=== PATIENT | female | born 1950 | race Caucasian/White ===

== ENCOUNTER 2019-10-16 14:20 | Outpatient (CLI) | payer MEDICARE, SELFPAY ==
[2019-10-16 15:20] LABS: HCT 40.4 % (36.0-46.0); HGB 13.3 g/dL (12.0-15.5); Mean Corp. HGB Concentration 32.9 g/dL (32.0-36.0); Mean Corpuscular Hemoglobin 30.6 pg (27.0-33.0); Mean Corpuscular Volume 92.9 fL (80-95); Mean Platelet Volume 10.5 fL (8.0-11.0); Platelet Count 278 x1000/uL (130-400); RBC 4.35 m/cumm (4.00-5.20); RBC Distribution Width 12.5 % (11.7-14.6); White Blood Cell Count 5.48 k/cumm (4.4-10.8)
[2019-10-16 16:05] LABS: ALT 29 U/L (14-59); AST 25 U/L (15-37); Alkaline Phosphatase 75 U/L (46-116); Anion Gap 7.9 mmol/L (3-11); BUN 14 mg/dL (7-18); Bilirubin, Total 0.5 mg/dL (0.2-1.0); CO2 31.1 mmol/L (21.0-32.0); CREATININE 0.69 mg/dL (0.55-1.02); Calcium 8.8 mg/dL (8.5-10.1); Chloride 105 mmol/L (98-107); Glucose 97 mg/dL (74-106); Potassium 4.6 mmol/L (3.5-5.1); Sodium 144 mmol/L (136-145); TSH 1.71 uIU/mL (0.36-3.74); Total Protein 6.7 g/dL (6.4-8.2)
== END 2019-10-16 14:40 ==
PROVIDERS: PCP Family Medicine; Visit Provider Family Medicine
DX: R00.2 Palpitations (principal)
CPT/HCPCS: 36415; 80053; 85027; 84443

== ENCOUNTER 2019-10-18 03:55 | Outpatient (CLI) | payer MEDICARE, SELFPAY ==
--- NOTE | 2019-11-05 14:55 | W.ZIOMONITOR ---
Date of service: 11/05/19 Time of Service: 14:55 ZIO Patch Application Infrastructure Engineer Note: This is a 14-day ZIO patch ordered for the indication of palpitations. ?Patient was in normal sinus rhythm for the majority of the recording. ?There were 3 episodes of supraventricular tachycardia with the longest lasting 8 seconds. The heart rate ranged from 102 to 222 bpm during these episodes. ?There were no episodes of ventricular tachycardia and rare (less than 1%) ventricular ectopic beats. ?There were no pauses greater than 3 seconds, no episodes of atrial fibrillation and no evidence of high degree heart block. ?Patient triggered events were associated with sinus rhythm and sinus tachycardia (but not SVT).
== END 2019-10-18 04:15 ==
PROVIDERS: PCP Family Medicine; Visit Provider Family Medicine
DX: R00.2 Palpitations (principal); I47.1 Supraventricular tachycardia
CPT/HCPCS: 0296T

== ENCOUNTER 2019-11-05 14:55 | Outpatient (CLI) | payer MEDICARE, SELFPAY | END 2019-11-05 15:15 | PROVIDERS: PCP Family Medicine; Referring Provider Family Medicine; Visit Provider Internal Medicine Cardiovascular Disease | DX: R00.2 Palpitations (principal); I47.1 Supraventricular tachycardia | CPT/HCPCS: 0298T ==

== ENCOUNTER 2020-10-15 12:44 | Outpatient (CLI) | payer MEDICARE, SELFPAY ==
--- NOTE | 2020-10-15 12:45 | RT.EKG_ITS ---
APPROVED REPORT Exam: Resting ECG Patient Location: O HR:80 bpm ECG Measurements Heart Rate 80 AXIS [place] 137 P 78 QRSd 107 QRS 93 QT 373 T 56 QTc 431 Conclusion Sinus rhythm...normal P axis, V-rate 50- 99 Probable left atrial enlargement...P >50mS, <-0.10mV V1 Right axis deviation...QRS axis ( 91,269) RSR' in V1 or V2, probably normal variant...small R' only Consider left ventricular hypertrophy...(S V1/V2+R V5/V6) >3.25mV
== END 2020-10-15 12:45 | disposition home or self-care (01) ==
LOC: DI.CARD 12:59
PROVIDERS: PCP Family Medicine; Referring Provider Family Medicine; Visit Provider Internal Medicine Cardiovascular Disease
DX: R00.2 Palpitations (principal)
CPT/HCPCS: 93010

== ENCOUNTER → 2020-10-15 12:44 | Outpatient (BNVA) | payer MEDICARE, SELFPAY | PROVIDERS: PCP Family Medicine; Referring Provider Family Medicine; Visit Provider Internal Medicine Cardiovascular Disease | DX: R00.2 Palpitations (principal) | CPT/HCPCS: 99204 ==

== ENCOUNTER 2020-10-28 01:05 | Outpatient (CLI) | payer MEDICARE, SELFPAY ==
--- NOTE | 2020-10-28 07:45 | DI.MAMMO_ITS ---
EXAM: MG MAMMO SCREENING CLINICAL HISTORY: screening,z12.39. TECHNIQUE: Bilateral full field digital CC and MLO mammographic images were obtained with 3D tomosyn thesis and utilizing computer aided detection (CAD). COMPARISON: Prior outside mammograms dating back to 2011, the most recent being June 2019. FINDINGS: There are numerous benign-appearing tiny microcalcifications in both breasts again noted. There are no new malignant-appearing microcalcification groups. No new obvious spiculated masses. There is no significant architectural distortion nor skin thicken ing-retraction. IMPRESSION: Benign findings. No radiographic evidence of malignancy. BI-RADS Category 1 - Negative Breast Density - Category B - Scattered areas of fibroglandular density Breast density Category C or D implies that the patient has dense breast tissue. Dense breast tissue can make it harder to find cancer on a mammogram. Dense breast tissue is also associated with an incr eased risk of breast cancer. This information about the result of the mammogram report was provided to the patient to raise their awareness. Use this report when you speak with the patient about their risks for breast cancer, which includes their family history. At that time, you may recommend additional screening tests (Ultrasoun d or MRI) as these tests may add significant information. A negative radiographic report should not delay biopsy if a dominant or clinically suspicious mass is present. Up to ten percent of cancers are not identified on mammography. A negative report may reinforce clinical impression. Adenosis and dense breasts may obscure an underlying neoplasm. False positive reports average 6 to 10%. Patient will receive a letter notifying them of these results.
== END 2020-10-28 01:25 ==
PROVIDERS: PCP Family Medicine; Visit Provider Family Medicine
DX: Z12.31 Encounter for screening mammogram for malignant neoplasm of breast (principal)
CPT/HCPCS: 77063; 77067

== ENCOUNTER → 2021-11-26 01:28 | Outpatient (CLI) | payer MEDICARE, SELFPAY ==
--- NOTE | 2021-11-26 07:30 | DI.US_ITS ---
APPROVED REPORT EXAM: Comprehensive 2D, Doppler, and color-flow Echocardiogram Patient Location: Out-Patient Field Party Manager: Faby Batista RDCS (AE) Indications: Palpitations, Rt Ventricular dysplasia Conclusion Normal left ventricular wall thickness and chamber size. Estimated ejection fraction is 55%. Wall m otion is normal Normal right ventricular size and systolic function Both atria are normal in size Trileaflet aortic valve without stenosis or regurgitation Mild mitral annular calcification. Mild mitral regurgitation Normal tricuspid valve with trace regurgitation. Estimated right ventricular systolic pressure is 30 mmHg Wall motion Left Ventricle The left ventricle is normal size. The left ventricular systolic function is normal. The left ventric ular ejection fraction is within the normal range. There is normal left ventricular wall thickness. T here is normal LV segmental wall motion. There is no ventricular septal defect visualized. LVEF is 56 %. Right Ventricle The right ventricle is normal size. The right ventricular systolic function is normal. The RVSP is 30 .5 mmHg. Atria The left atrium size is normal. The right atrium size is normal. The interatrial septum is intact wit h no evidence for an atrial septal defect. Aortic Valve The aortic valve is normal in structure. Aortic valve is trileaflet. There is no aortic valvular sten osis. No aortic regurgitation is present. Mitral Valve Mild mitral annular calcification. No evidence of mitral valve stenosis. Mild mitral regurgitation. Tricuspid Valve The tricuspid valve is normal in structure. There is no tricuspid valve stenosis. Trace tricuspid reg urgitation. Pulmonic Valve The pulmonary valve is normal in structure. There is no pulmonic valvular stenosis. There is no pulmo jatin valvular regurgitation. Great Vessels The aortic root is normal in size. Ascending aorta is not well visualized. Aortic arch is normal in c aliber. IVC is normal in size and collapses >50% with inspiration. Pericardium There is no pericardial effusion. 2D Dimensions IVSD d PLAX 0.85 cm F: 0.6-1.0 LV Vol A2C d MOD 101.5 mL LVPW d PLAX 0.86 cm F: 0.6 - 1.0 LV Vol A4C d MOD 103.0 mL LVID d PLAX 4.85 cm F: 3.8 - 5.2 LA vol/ BSA A2C s A-L 22.6 mL/m2 LVDs 3.40 cm F: 2.2 - 3.5 LA vol/ BSA A4C s A-L 26.0 mL/m2 Ao Root d 3.03 cm F: 2.7 - 3.3 LA Vol/ BSA Biplane s A-L 24.8 mL/m2 RA Area A4C 13.37 cm2 LA Area A4C s MOD 20.47 cm2 RA Vol/ BSA A4C s A-L 14.8 mL/m2 LA Area A2C s MOD 19.54 cm2 LV EF Teichholz 55.5 % LV EF A4C MOD 55.9 % LVEF (Barajas's) 56.10 % F: 54 - 74 LV EF A2C MOD 56.2 % LV Volume 72.01 mL F: 46 - 106 LV EF Biplane MOD 56.1 % LV Volume Index 41.86 mL/m2 F: 29 - 61 SV 57.25 mL LV Vol Biplane MOD 102.0 mL SV Index 23.54 mL/m2 FS 28.90 % M-Mode TAPSE 2.50 cm (M/F) >1.7 LV Diastology MV E' medial 0.142 (>0.07 m/s) E/A Ratio 1.6 LV E/e MED 6.60 (<14) MV E Vmax 0.94 (0.4-1.3 m/s) MV E' lateral 0.139 (>0.1 m/s) MV A Vmax 0.60 (0.4-1.3 m/s) LV E/e LAT 6.75 (<14) MV E/A Ratio 1.56 MV E/E' medial 6.62 MV E/E' lateral 6.77 Aortic Valve LVOT Area 3.65 cm2 MEGAN 2.73 cm2 LVOT Vmax 1.25 m/s AoV Area Vmax 2.73 cm2 LVOT Mean Gerry. 0.78 m/s AoV Area/ BSA (Vmax) 1.12 cm2/m2 LVOT Peak Grad 6.3 mmHg MEGAN Mean Gerry. 1.21 cm2 LVOT Mean Grad 3.0 mmHg LVOT VTI 0.288 m LVOT Diam s 2.15 cm AoV Vmax 1.67 m/s Velocity Ratio 0.74 AoV Mean Gerry. 1.21 m/s AoV Peak Grad 11.2 mmHg LVOT SV 104.85 mL AoV Mean Grad 6.5 mmHg AoV VTI 0.349 m AoV Area VTI 3.00 cm2 AoV Area/ BSA (VTI) 1.23 cm/m2 Mitral Valve MV DT 180 (160-240 msec) MV PHT 52 msec MV Area PHT 4.22 cm2 Pulmonary Valve PV Vmax 0.95 (0.5-1.5 m/s) RVOT Peak Gr. 2.92 mmHg PV Peak Grad 3.6 mmHg RVOT Mean Gr. 1.45 mmHg PV Mean Grad 2.2 mmHg RVOT VTI 0.190 m PV VTI 0.222 m RVOT Vmax 0.85 m/s Tricuspid Valve TR Peak Grad 27.5 mmHg TR Vmax 2.62 m/s RA Pressure 3.00 mmHg RVSP (TR) 30.5 mmHg
== END ==
PROVIDERS: Visit Provider Internal Medicine Cardiovascular Disease
DX: Q24.9 Congenital malformation of heart, unspecified (principal); R00.2 Palpitations
CPT/HCPCS: 93306

== ENCOUNTER → 2021-11-30 09:41 | Outpatient (BNVA) | payer MEDICARE, SELFPAY | PROVIDERS: Visit Provider Internal Medicine Cardiovascular Disease | DX: Q24.9 Congenital malformation of heart, unspecified (principal) | CPT/HCPCS: 99213 ==

== ENCOUNTER → 2021-12-30 19:40 | Outpatient (CLI) | payer MEDICARE, SELFPAY ==
--- NOTE | 2021-12-30 20:00 | DI.RAD_ITS ---
Exam(s) XR FOOT RT COMPLETE EXAM: XR FOOT RT COMPLETE CLINICAL HISTORY: right foot pain. TECHNIQUE: 2D digital imaging was performed. Three views. COMPARISON: No exams were available for comparison FINDINGS: BONES: No acute fracture is present. No bony destructive lesion is seen. Small heel spurs. Mild deg enerative changes tarsal metatarsal joints and 1st MTP joint. Mild hallux valgus. JOINTS: No dislocation present. SOFT TISSUE: Normal. IMPRESSION: Degenerative changes and small heel spurs. No acute abnormality DATA REPOSITORY: RADIATION DOSE DELIVERED:
--- NOTE | 2021-12-30 20:34 | DI.VRAD_ITS ---
PROCEDURE INFORMATION: Exam: XR Right Foot Exam date and time: 12/30/2021 7:56 PM Age: 71 years old Clinical indication: Injury or trauma; Fall; Sprain or strain; Foot; Right TECHNIQUE: Imaging protocol: XR Right foot. Views: 3 or more views. COMPARISON: No relevant prior studies available. FINDINGS: Bones/joints: No suspicious osseous lytic or blastic lesion. No acute fracture or dislocation. There is mild hallux valgus deformity with mild degenerative changes of the 1st MTP joint. Small plantar spur with mild posterior calcaneal enthesopathy. Soft tissues: There is soft tissue bunion formation. IMPRESSION: No acute fracture or dislocation. Dictated and Authenticated by: Missael Montez MD. Ordering:ARLENE Delarosa MD
== END ==
PROVIDERS: Visit Provider Physician Assistant Medical
DX: M79.671 Pain in right foot (principal); M77.31 Calcaneal spur, right foot; M19.071 Primary osteoarthritis, right ankle and foot; M20.11 Hallux valgus (acquired), right foot
CPT/HCPCS: 73630

== ENCOUNTER → 2022-01-28 00:03 | Outpatient (CLI) | payer MEDICARE, SELFPAY ==
--- NOTE | 2022-01-28 06:45 | DI.MAMMO_ITS ---
Exam(s) MAMMO SCREENING EXAM: MAMMO SCREENING CLINICAL HISTORY: screening, Z12.39 TECHNIQUE: Mammograms were interpreted according to the usual protocol including computer analysis w BCKSTGR CAD system, tomosynthesis and C-view imaging. COMPARISON: 2012 through 2020 FINDINGS: The breasts are composed of scattered fibroglandular densities, Breast Density category B. No suspicious masses or suspicious microcalcifications are seen. No skin thickening or abnormal axillary lymph nodes are seen. There has been no significant change from prior exams. IMPRESSION: BI-RADS Category 1, Negative mammogram Yearly screening mammography is recommended. Breast Density - Category B, scattered fibroglandular densities. A negative radiographic report should not delay biopsy if a dominant or clinically suspicious mass is present. Up to ten percent of cancers are not identified on mammography. A negative report may reinforce clinical impression. Adenosis and dense breasts may obscure an underlying neoplasm. False positive reports average 6 to 10%. Patient will receive a letter notifying them of these results.
== END ==
DX: Z12.31 Encounter for screening mammogram for malignant neoplasm of breast (principal)
CPT/HCPCS: 77063; 77067

== ENCOUNTER 2022-02-09 03:55 | Outpatient (CLI) | payer MEDICARE, SELFPAY ==
[2022-02-09 08:02] LABS: ALT 25 U/L (14-59); AST 26 U/L (15-37); Albumin 3.6 g/dL (3.4-5.0); Alkaline Phosphatase 83 U/L (46-116); Anion Gap 9.3 mmol/L (3-11); BUN 21 mg/dL (7-18); Bilirubin, Total 0.5 mg/dL (0.2-1.0); CO2 26.7 mmol/L (21.0-32.0); CREATININE 0.8 mg/dL (0.55-1.02); Calcium 8.3 mg/dL (8.5-10.1); Calculated LDL 123 mg/dL (<100); Chloride 107 mmol/L (98-107); Cholesterol 212 mg/dL (<200); Glucose 88 mg/dL (74-106); HDL Cholesterol 82 mg/dL (40-60); Potassium 4.1 mmol/L (3.5-5.1); Sodium 143 mmol/L (136-145); Total Protein 6.9 g/dL (6.4-8.2); Triglyceride 38 mg/dL (<150)
== END 2022-02-09 03:56 | disposition home or self-care (01) ==
LOC: LBO 03:55
DX: E78.5 Hyperlipidemia, unspecified (principal)
CPT/HCPCS: 36415; 80053; 80061

== ENCOUNTER 2023-03-27 02:46 | Outpatient (CLI) | payer MEDICARE, SELFPAY ==
--- NOTE | 2023-03-27 06:45 | DI.MAMMO_ITS ---
Exam(s) MAMMO SCREENING EXAM: MAMMO SCREENING CLINICAL HISTORY: screening,z12.39 TECHNIQUE: Bilateral full field digital CC and MLO mammographic images were obtained with 3D tomosyn thesis and utilizing computer aided detection (CAD). COMPARISON: Available for comparison. FINDINGS: Masses/Architectural Distortion: None seen. Microcalcifications: No suspicious pleomorphic-type are seen. Skin Thickening/Nipple Retraction: None. IMPRESSION: 1. No significant interval change with no specific features of malignancy noted. 2. Unless there is more urgent need, screening mammography is recommended, as per [employer] guidelines. BI-RADS Category 1 - Negative Breast Density - Category B - Scattered areas of fibroglandular density Breast density category C or D implies that the patient has dense breast tissue. Dense breast tissue is very common and is not abnormal but dense breast tissue can make it harder to find cancer on a ma mmogram. Also, dense breast tissue may increase their breast cancer risk. This information about the result of the mammogram report was provided to the patient to raise their awareness. Use this report when you speak with the patient about their risks for breast cancer, which includes their family hist ory. At that time, you may recommend for more screening tests (Ultrasound or MRI) as they might be us eful based on their risk. A negative radiographic report should not delay biopsy if a dominant or clinically suspicious mass is present. Up to ten percent of cancers are not identified on mammography. A negative report may reinforce clinical impression. Adenosis and dense breasts may obscure an underlying neoplasm. False positive reports average 6 to 10%. Patient will receive a letter notifying them of these results.
== END 2023-03-27 03:06 ==
LOC: DI 02:46
PROVIDERS: PCP Nurse Practitioner Adult Health; Visit Provider Nurse Practitioner Adult Health
DX: Z12.31 Encounter for screening mammogram for malignant neoplasm of breast (principal)
CPT/HCPCS: 77063; 77067

== ENCOUNTER 2023-04-27 16:39 | Outpatient (REF) | payer MEDICARE, SELFPAY ==
--- NOTE | 2023-04-27 16:30 | SKI_PTH ---
PATIENT: Lindy Armando LOC: [facility]#:[id number] AGE/SX: 72/F ROOM: RE04/27/[address]: Isaura Cunningham : 1950 BED: DIS: 04/27/2023 SPEC #: [id number] RECD: 04/28/23 12:54 STATUS: ALVARO REQ #: [id number] SADAF: 04/27/23 16:[address]: Isaura Cunningham DEPT: Surgical Specimen RECD BY: Leny Ruiz ENTERED: 04/28/23 12:55 SP TYPE: EMRE AMBRIZ DR: Flower Alarcon APRN Tissues: 1 - SKIN BIOPSY(SHAVE/PUNCH) Procedures: SKIN LEVEL 4 Comments: [id number]
== END 2023-04-27 16:40 | disposition home or self-care (01) ==
LOC: LBN 16:39
PROVIDERS: PCP Nurse Practitioner Adult Health; Visit Provider Physician Assistant Medical
DX: L82.0 Inflamed seborrheic keratosis (principal); N64.89 Other specified disorders of breast
CPT/HCPCS: 88305

== ENCOUNTER → 2023-12-28 01:26 | Outpatient (CLI) | payer MEDICARE, SELFPAY ==
--- NOTE | 2023-12-28 07:00 | DI.DEXA_ITS ---
Exam(s) XR DEXA BONE DENSITY W/WO ANT EXAM: XR DEXA BONE DENSITY W/WO ANT CLINICAL HISTORY: h/o osteopenia, f/u osteopenia, screening for osteoporosis in post TECHNIQUE: COMPARISON: No exams were available for comparison FINDINGS: Lateral Spine Image: Unremarkable. No compression deformities identified. Left hip: Total T-Score: -2.1 Total Z-Score: -0.6 T- and Z-scores: Findings are consistent with osteopenia. Lumbar Spine: Total T-Score: -2.4 Total Z-Score: 0.2 T- and Z-scores: Findings are consistent with osteopenia. There is osteoporosis seen in the L1 and L 4 vertebral bodies with T-scores of -2.6 -2.9, respectively. IMPRESSION: Osteoporosis seen in L1 and L4.
== END ==
PROVIDERS: PCP Family Medicine; Visit Provider Family Medicine
DX: Z13.820 Encounter for screening for osteoporosis (principal); Z78.0 Asymptomatic menopausal state; M81.8 Other osteoporosis without current pathological fracture
CPT/HCPCS: 77080

== ENCOUNTER 2024-01-19 14:31 | Outpatient (REF) | payer MEDICARE, SELFPAY ==
--- NOTE | 2024-01-19 13:13 | SKI_PTH ---
PATIENT: Lindy Armando LOC: [facility] U#:[id number] AGE/SX: 73/F ROOM: RE01/19/[address]: Gabi Burrell : 1950 BED: DIS: 01/19/2024 SPEC #: [id number] RECD: 01/22/24 12:43 STATUS: ALVARO REJuan Luis #: [id number] SADAF: 01/19/24 13:[address]: Gabi uBrrell DEPT: Surgical Specimen RECD BY: Leny Ruiz Tissues: 1 - SKIN BIOPSY(SHAVE/PUNCH) Procedures: SKIN LEVEL 4 Comments: [id number]
== END 2024-01-19 14:32 | disposition home or self-care (01) ==
LOC: LBN 14:31
PROVIDERS: PCP Family Medicine; Visit Provider Family Medicine
DX: L98.9 Disorder of the skin and subcutaneous tissue, unspecified (principal); L21.9 Seborrheic dermatitis, unspecified
CPT/HCPCS: 88305

== ENCOUNTER → 2024-02-08 02:22 | Outpatient (CLI) | payer MEDICARE, SELFPAY ==
--- NOTE | 2024-02-08 08:43 | DI.RAD_ITS ---
Exam(s) XR FOOT LT COMPLETE EXAM: XR FOOT LT COMPLETE CLINICAL HISTORY: assess for foreign body, lt foot, S90.852A superficial foreign body. TECHNIQUE: 2D digital imaging was performed. COMPARISON: CR,XR XR FOOT RT COMPLETE from 12/30/2021 FINDINGS: 3 views No evidence of fracture or diastasis of the Lisfranc joint. Moderate degenerative changes at the gre at toe metatarsophalangeal joint noted. There is mild soft tissue swelling adjacent to the head of t he 5th metatarsal. No soft tissue calcification or radiopaque foreign body seen at this level. Fift h metatarsal head appears unremarkable. No evidence of erosions nor osteomyelitis. IMPRESSION: No fractures. No radiopaque foreign bodies evident. No evidence of osteomyelitis. DATA REPOSITORY: RADIATION DOSE DELIVERED:
== END ==
PROVIDERS: PCP Family Medicine; Visit Provider Nurse Practitioner Family
DX: S90.852A Superficial foreign body, left foot, initial encounter (principal); X58.XXXA Exposure to other specified factors, initial encounter
CPT/HCPCS: 73630

== ENCOUNTER → 2024-02-26 13:40 | Outpatient (BNVA) | payer MEDICARE, SELFPAY | PROVIDERS: PCP Family Medicine; Referring Provider Family Medicine; Visit Provider Podiatrist | DX: M79.672 Pain in left foot (principal); W26.8XXA Contact with other sharp object(s), not elsewhere classified, initial encounter; Y93.01 Activity, walking, marching and hiking | CPT/HCPCS: 11042; 99213 ==

== ENCOUNTER 2024-04-16 02:44 | Outpatient (CLI) | payer MEDICARE, SELFPAY ==
--- OUTSIDE RECORDS SUMMARY | 2024-04-16 02:47 | XMS_ITS | Encounter Summary ---
Author Organization [facility] [place] [address] Care Team Providers Care Facilities Custodian Name Role Phone Anna Segura MD Primary Care Provider [phone] Reason for Visit * Reason Comments Skin Check Encounter Details Date Type Department Care Team (Late st Contact Info) Description 01/24/2014 4:15 PM EDT Office Visit Dermatology at [address] [phone] Helio Gerardo MD [address] [facility] [place] [address] Seborrheic keratosis (Primary Dx); Nevus Social History Tobacco Use Types Packs/Day Years Used Date Smoking Tobacco: Never Sex and Gender Information Value Date Recorded Sex Assigned at Not on file Gender Identity Not on file Sexual Orientation Not on file documented as of this encounter Progress Notes * Helio Gerardo MD - 01/24/2014 4:41 PM EDT Problem: Repeat skin checkup. Lindy follows up, referred back by Shobha Nicole, who recently saw her and was concerned about a mid central thoracic back atypically pigmented lesion. It is just adjacent to where she has a patch of hyperpigmentation consistent with notalgia paresthetica. Physical examination reveals a pleasant 63-year-old woman who has a light buchanan, waxy, stuck-on appearing seborrheic keratosis of the mid central back with darker macules of hyperpigmentation, brown to black, within it. It appears to be benign seborrheic keratosis. Just to the right laterally and adjacent to this is her hyperpigmented patch of notalgia paresthetica. Otherwise, careful examination of the head and the neck, the chest, the back, hands, arms, forearms, thighs, and calves is benign. Patient continues to have a 1.5 mm blue nevus on the scapha of her right ear. The hyperpigmented area on her right mid back, consistent with notalgia paresthetica, is 4 cm in diameter. Assessment and Plan: 1. Benign skin examination. a. Patient reassured about benign skin examination. b. No treatment necessary. c. Reassured about benign seborrheic keratosis. Return to clinic p.r.n. COPY: Sirena Viramontes M.D. documented in this encounter Plan of Treatment Upcoming Encounters Date Type Department Care Team (Late st Contact Info) Description 02/10/2026 3:15 PM EDT Office Visit Dermatology at [address] [phone] Helio Gerardo MD [address] [facility] [place] [address] documented as of this encounter Visit Diagnoses Diagnosis Seborrheic keratosis- Primary Other seborrheic keratosis Nevus Benign neoplasm of skin, site unspecified documented in this encounter Care Teams Facilities Custodian Relationship Specialty Start Date End Date Anna Segura MD [address] [place] [address] PCP - General 07/27/10 09/03/15 documented as of this encounter
--- OUTSIDE RECORDS SUMMARY | 2024-04-16 02:47 | XMS_ITS | Encounter Summary ---
Author Organization [facility] Address [address] [place] [address] Care Team Providers Care Precision Thread Grinder Operator Name Role Phone Unavailable Primary Care Provider Unavailabl e Encounter Details Date Type Department Care Team (Late st Contact Info) Description 10/21/[address] [facility] ([facility] [address] [place], [place] [address] Raquel Nicole ARNP [address] [place] [id number] Social History Tobacco Use Types Packs/Day Years Used Date Smoking Tobacco: Never Assessed Sex and Gender Information Value Date Recorded Sex Assigned at Not on file Gender Identity Not on file Sexual Orientation Not on file documented as of this encounter Plan of Treatment Not on file documented as of this encounter Procedures Procedure Name Priority Date/Time Associated Diagnosis Comments CYTOPATHOLOGY Routine 10/21/2009 0:00 EST documented in this encounter Results * CYTOPATHOLOGY (10/21/2009 0:00 EST) Pathology Report: CYTOPATHOLOGY REPORT ? Reports generated via electronic interface contain original data; ? however they are lacking the format of the original report. ? Caution should be taken when reading/interpreti ng unformatted reports. ? Name: ? DULCE ARMANDO ? Accession #: ? [id number] ? : ? 1950 (Age: 59) ??F ?Collect Date: ? 10/21/2009 ? Location: ? [facility] ? Receive Date: ? 10/23/2009 ? Provider: ?RAQUEL RHODES ? Copy to: ? Specimen/Source: ?Pap Test, Cervix/Endocervix, ThinPrep Imaging System ? with manual evaluation ? Last Menstrual Period: ? Other: ? Additional clinical information: '94 Atypia. Atrophic Changes. ? SPECIMEN ADEQUACY ? Unsatisfactory for Evaluation, ? - insufficient numbers of squamous epithelial cells (less than 10% of expected ?? cellularity) ? GENERAL CATEGORIZATION ? Specimen processed and examined, but unsatisfactory for evaluation of ? epithelial abnormality. ? Recommend repeat Pap test or further follow up, as clinically indicated. ? Document reviewed and electronically signed by: ? Roberta Eligio, CT(ASCP) ? Report Date: ??10/27/2009 13:36 ? End of Report ? JESSICA GUERRERO 10/21/2009 10/23/2009 Raquel RHODES PATHOLOGY ORDERABL ES [facility] [address] [place] [address] documented in this encounter Visit Diagnoses Not on filedocumented in this encounter
--- OUTSIDE RECORDS SUMMARY | 2024-04-16 02:47 | XMS_ITS | Encounter Summary ---
Author Organization [facility] Address [facility] [place] [address] Care Team Providers Care Commercial Real Estate Assistant Name Role Phone Tyesha Schneider MD Primary Care Provider [phone] Reason for Visit * Reason Comments Skin Check * Consultation (Urgent) - Closed Specialty Diagnoses / Procedures Referred By Jamil tillman Referred To Contact Dermatology Diagnoses Disorder of the skin and subcutaneous tissue, unspecified SKIN lesion on nose since spring has grown and is conerning Procedures she will be leaving the state in 3 weeks and should be seen prior as she will be away for a length of time Kunal Hunt R, VEGETABLE LOADER MACHINE OPERATOR [address] [place] [address] [facility] Dermatology [address] [place] [address] Referral ID Status Reason Start Date Expiration Date V isits Requested Visits Authorized [id number] Closed Consult, Test & [facility] PCP Updated and/or Approved 03/25/2021 03/25/2022 6 6 Encounter Details Date Type Department Care Team (Late st Contact Info) Description 04/05/2021 9:45 AM EDT Office Visit Dermatology at [facility] [address] [place] [address] Luke Figueroa MD [facility] [address] [place] [address] Actinic keratoses; Seborrheic keratosis; History of basal cell carcinoma; Avelar angioma Social History Tobacco Use Types Packs/Day Years Used Date Smoking Tobacco: Never Smokeless Tobacco: Never Sex and Gender Information Value Date Recorded Sex Assigned at Not on file Gender Identity Not on file Sexual Orientation Not on file documented as of this encounter Patient Instructions * Patient Instructions* Ozzy Irvin LPN - 04/05/2021 9:45 AM EDT Actinic Keratoses You have been diagnosed today with Actinic Keratosis (AK). These dry, scaly patches are considered the earliest stage in the development of skin cancer. In rare cases, an AK can progress to skin cancer. Because of this risk, AKs are usually treated. You were treated today with Liquid Nitrogen. This is the most common treatment for AKs. Liquid nitrogen is extremely cold, and freezes the surface of the skin, causing the lesion to flake off. Treatment with liquid nitrogen can be uncomfortable, but discomfort should subside after a couple of hours. The area treated will look red and irritated, and it may blister up or turn dark, then fall off. This is normal! You do not need any special treatment for the area, but you may find cold compresses and/or a lightapplication of Vaseline soothing. For best results, do not rub or pick at the healing lesion. Expected healing time is 3-4 weeks. Please contact the Dermatology clinic if the lesion has not fully resolved after 6 weeks. documented in this encounter Progress Notes * Luke Figueroa MD - 04/05/2021 9:45 AM EDT Images from the original note were not included. DEPARTMENT OF DERMATOLOGY Medical Dermatology Clinic Provider: Luke Figueroa MD Patient's preferred name ePrla Preferred contact method for results []myDH []Letter [x]Phone: Cell Detailed phone message OK? Yes Are there any other people with whom we may discuss your care? Kuldip, daughter Danuta PAST MEDICAL HISTORY If no, type N. If yes, type date, location, treatment Melanoma N Dysplastic nevi N SCC N BCC 07/02/2019: Left nasal tip, superficial and nodular BCC, s/p ED&C AKs N Other relevant past medical history (i.e. eczema, psoriasis, birthmarks, immunosuppression) N FAMILY HISTORY If yes, details Melanoma N NMSC Father Other relevant family history N SOCIAL HISTORY Occupation: Retired Other: History of Present Illness: Lindy Armando is a 70 y.o. year old. Patient returns to clinic todayfor evaluation of FSE with the following concerns: - Spot on the nos,e present since the spring, it is scaly at times. Not symptomatic. - She has many moles and requests a full skin check today. Medications: Reviewed in eD-H Allergies: Reviewed in eD-H Skin Examination: Full skin examination: Patient asked to undress to their comfort level. Verbalized that the provider's preference is that patient removal all clothing and that the provider will not examine areas patient elects to keep covered. Examination of the scalp, hair, head, face, ears, neck, chest, axillae,abdomen, back, buttocks, and upper and lower extremities. Genitalia was not examined. Assessment/Plan: #. Actinic Keratosis - 0.2-0.3cm scaly irregular pink papule on the left nasal sidewall - Discussed the natural history and etiology of actinic keratoses including the premalignant potential of these lesions. -Discussed treatment options. Procedure Note: Procedure: Destruction of lesion(s) with cryotherapy. Number: 1 Location: as above Discussed procedure and expectations including risks (including risk of hypopigmentation) and benefits. Verbal consent obtained. Frozen with LN2, 15-30 second thaw time, TWICE. There were no complications; the patient tolerated the procedure well. Post-procedure expectations and wound care were reviewed. #. History of BCC - Atrophic papule on the left tip of the nose - s/p ED&C with Dr. Gerardo - NER, will continue to monitor the area. #. Seborrheic Keratoses - Scattered yellow to buchanan stuck on papules 3-6 mm in size on the chest, back, arms, and legs -benign nature of lesions discussed -patient reassured. #. 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 Nevi - scattered brown macules on the back, chest, and face w/o concerning findings on dermoscopy -pt reassured -advised the pt to monitor nevi monthly and if they are growing, changing color, or new lesions appear pt should call back to be seen before their next FBSE Other items to document in the assessment/plan if relevant ??? Sun protection discussed (protective clothing and SPF30+ broad-spectrum sunscreen) Prior ED&C site: RTC: 1 year for FSE []Note routed to front office secretary [x]Recall has been placed in scheduling system []Appointment scheduled at checkout Scribe attestation: Ozzy Irvin LPN has performed the documentation for this encounter in the presence of and acting as a scribe for Luke Figueroa MD I performed the above scribed service and agree with the accuracy of the documentation in this encounter. Reviewed and signed by: Luke Figueroa MD Dermatology [facility] documented in this encounter Plan of Treatment Upcoming Encounters Date Type Department Care Team (Late st Contact Info) Description 02/10/2026 3:15 PM EDT Office Visit Dermatology at [facility] [address] [place] [phone] Helio Gerardo MD [address] [facility], [facility] [place] [address] documented as of this encounter Visit Diagnoses Diagnosis Actinic keratoses Actinic keratosis Seborrheic keratosis Other seborrheic keratosis History of basal cell carcinoma Personal history of other malignant neoplasm of skin Avelar angioma Nevus, non-neoplastic documented in this encounter Care Teams Commercial Real Estate Assistant Relationship Specialty Start Date End Date Tyesha Schneider MD [address] [place] [address] PCP - General Family Medicine 07/02/19 documented as of this encounter
--- OUTSIDE RECORDS SUMMARY | 2024-04-16 02:47 | XMS_ITS | Encounter Summary ---
Author Organization [facility] Address [facility] [place] [address] Care Team Providers Care Wire Stretcher Name Role Phone Tyesha Schneider MD Primary Care Provider Reason for Visit * Reason Comments Skin Check Encounter Details Date Type Department Care Team (Late st Contact Info) Description 09/19/2022 8:00 AM EST Office Visit Dermatology at [address] [phone] Helio Gerardo MD [address] [place] [address], [facility] [place] [address] Seborrheic keratosis; History of basal cell carcinoma; Avelar angioma Social History Tobacco Use Types Packs/Day Years Used Date Smoking Tobacco: Never Smokeless Tobacco: Never Sex and Gender Information Value Date Recorded Sex Assigned at Not on file Gender Identity Not on file Sexual Orientation Not on file documented as of this encounter Progress Notes * Helio Gerardo MD - 09/19/2022 8:00 AM EST Problem: 1. Repeat skin checkup 2. 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 Since I last saw her she was seen at [facility] in April 2021 for benign skin examination. She had a number of bad sunburns in the past and enjoys the [id number] bicycling in the summer and skiing/winter sports in the winter. Physical examination reveals a pleasant 72-year-old woman who has a benign examination of the head and the neck the chest the back the hands arms forearms thighs and calves. There is no evidence of any cutaneous malignancies. She has a number of seborrheic keratoses on her back. She has a number ofcherry red hemangiomas on the torso. Fortunately there is no evidence of any recurrent BCC on the left nasal tip. Assessment plan: Benign skin examination 1. Patient reassured about her benign skin examination 2. Recommend I continue to see her on a roughly every 2-year basis. 3. Continue sun avoidance precautions History of BCCA left nasal tip 1. No evidence of recurrence. CC: Marcia Schneider MD documented in this encounter Plan of Treatment Upcoming Encounters Date Type Department Care Team (Late st Contact Info) Description 02/10/2026 3:15 PM EDT Office Visit Dermatology at [place] [address] [place] [address] Helio Gerardo MD [address] [facility], [address] [place] [address] documented as of this encounter Visit Diagnoses Diagnosis Seborrheic keratosis Other seborrheic keratosis History of basal cell carcinoma Personal history of other malignant neoplasm of skin Avelar angioma Nevus, non-neoplastic documented in this encounter Care Teams Wire Stretcher Relationship Specialty Start Date End Date Tyesha Schneider MD [address] [place] [address] [address] [facility] [address] [place] [address] PCP - General Family Medicine 07/02/19 documented as of this encounter
--- OUTSIDE RECORDS SUMMARY | 2024-04-16 02:47 | XMS_ITS | Encounter Summary ---
Author Organization [facility] [place] [address] Care Team Providers Care Mail Rider Name Role Phone Tyesha Schneider MD Primary Care Provider [phone] Encounter Details Date Type Department Care Team (Latest Contact Info) Description 02/16/2023 Travel Social History Tobacco Use Types Packs/Day Years Used Date Smoking Tobacco: Never Smokeless Tobacco: Never Sex and Gender Information Value Date Recorded Sex Assigned at Not on file Gender Identity Not on file Sexual Orientation Not on file documented as of this encounter Plan of Treatment Upcoming Encounters Date Type Department Care Team (Late st Contact Info) Description 02/10/2026 3:15 PM EDT Office Visit Dermatology at [address] [phone] Helio Gerardo MD [address] [facility], [place] [address] documented as of this encounter Visit Diagnoses Not on filedocumented in this encounter Care Teams Mail Rider Relationship Specialty Start Date End Date Tyesha Schneider MD [address] [place] [address] PCP - General Family Medicine 07/02/19 documented as of this encounter
--- OUTSIDE RECORDS SUMMARY | 2024-04-16 02:47 | XMS_ITS | Clinical Summary ---
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 Pilar cyst 05/31/2012 Seborrheic keratosis 05/31/2012 Verruca vulgaris 04/27/2011 Encounters Date Type Department Care Team Description 02/09/2024 4:00 PM EDT Office Visit Dermatology at [address] [phone] Helio Gerardo MD History of basal cell carcinoma; Seborrheic keratosis 02/09/2024 Travel 02/02/2024 Travel from Last 3 Months Social History Tobacco Use Types Packs/Day Years Used Date Smoking Tobacco: Never Smokeless Tobacco: Never Sex and Gender Information Value Date Recorded Sex Assigned at Not on file Gender Identity Not on file Sexual Orientation Not on file Plan of Treatment Upcoming Encounters Date Type Department Care Team (Late st Contact Info) Description 02/10/2026 3:15 PM EDT Office Visit Dermatology at [address] [phone] Helio Gerardo MD [address] [place] [address], [place] [address] Health Maintenance Due Date Last Done Comments CT Colonography 1950 Colonoscopy 1950 Colorectal Cancer Screening 1950 FIT DNA 1950 FIT 1950 Sigmoidoscopy (10 year) with FIT yearly 1950 Sigmoidoscopy 1950 Hepatitis C Screening 1970 Tdap adult 1971 Tetanus vaccine 1971 Breast Cancer Share Decision Needed 1992 Breast Cancer screening 1992 Zoster vaccine (1 of 2) 2002 Advance Directive 2007 Bone Density Scan 2017 Pneumoccocal Vaccine: 65+ (1 of 1 - PCV) 2017 Covid-19 Vaccine (1 - season) 2023 Influenza (Flu) vaccine (1 o f 1 - Influenza standard series) 05/05/2024 Care Teams Echocardiography Tech Relationship Specialty Start Date End Date Tyesha Schneider MD [address] [place] [address] PCP - General Family Medicine 07/02/19
--- OUTSIDE RECORDS SUMMARY | 2024-04-16 02:47 | XMS_ITS | Encounter Summary ---
Author Organization [facility] [place] [address] Care Team Providers Care Interactive Project Manager Name Role Phone Tyesha Schneider MD Primary Care Provider [phone] Reason for Visit * Reason Comments Follow-up Skin Check Encounter Details Date Type Department Care Team (Late st Contact Info) Description 07/02/2019 4:45 PM EDT Office Visit Dermatology at [address] [phone] Helio Gerardo MD [address] [place] [address], [facility] [place] [address] History of basal cell carcinoma; Seborrheic keratosis; Nevus Social History Tobacco Use Types Packs/Day Years Used Date Smoking Tobacco: Never Smokeless Tobacco: Never Sex and Gender Information Value Date Recorded Sex Assigned at Not on file Gender Identity Not on file Sexual Orientation Not on file documented as of this encounter Progress Notes * Helio Gerardo MD - 07/02/2019 4:45 PM EDT Problem: 1. Repeat skin checkup, new lesions of concern Lindy follows up after last being seen in my office in October 2015. She is concerned about themany moles that she is developing on her back. She like to have a general skin checkup. Physical examination reveals a pleasant now 68-year-old woman who has a number of seborrheic keratoses on her back, all of which have a classic waxy stuck on appearance. She continues to have a patchof hyperpigmented notalgia paresthetica of the upper central back which is intermittently itchy butnot markedly so. I recommended Sarna lotion for this. She has seborrheic keratoses also on her flanks bilaterally. She has several on the temples of her face. Examination of the scalp reveals a pedunculated compound versus intradermal nevus on the posterior occipital scalp. She has a benign examination was of the face the neck the chest to the back the hands the arms deforms the thighs and the calves. She does have a pearly papule concerning for possible BCCA on the left nasal tip. Assessment and plan: Seborrheic keratoses trunk and facial 1. Patient reassured 2. No treatment necessary Rule out BCCA left nasal tip 1. After obtaining informed consent site was anesthetized and removed with shave C&D x3 2. Triple antibiotic and Band-Aid placed. We will notify patient of biopsy results in 1 week. 3. After curettage site measured 6 mm in diameter. 4. Recommend return to clinic in another 2 to 3 years for repeat check. CC: Marcia Schneider MD documented in this encounter Plan of Treatment Upcoming Encounters Date Type Department Care Team (Late st Contact Info) Description 02/10/2026 3:15 PM EDT Office Visit Dermatology at [address] [place] [address] Helio Gerardo MD [address] [place] [address], [facility] [place] [address] documented as of this encounter Visit Diagnoses Diagnosis History of basal cell carcinoma Personal history of other malignant neoplasm of skin Seborrheic keratosis Other seborrheic keratosis Nevus Benign neoplasm of skin, site unspecified documented in this encounter Care Teams Interactive Project Manager Relationship Specialty Start Date End Date Tyesha Schneider MD [address] [place] [address] [address] [place] [address] PCP - General Family Medicine 07/02/19 documented as of this encounter
--- OUTSIDE RECORDS SUMMARY | 2024-04-16 02:47 | XMS_ITS | Encounter Summary ---
Author Organization [facility] [place] [address] Care Team Providers Care Vault Teller Name Role Phone Tyesha Schneider MD Primary Care Provider [phone] Encounter Details Date Type Department Care Team (Latest Contact Info) Description 02/02/2024 Travel Social History Tobacco Use Types Packs/Day [...] 3:15 PM EDT Office Visit Dermatology at [address] [phone] Helio Gerardo MD [address] [facility], [place] [address] documented as of this encounter Visit Diagnoses Not on filedocumented in this encounter Care Teams Vault Teller Relationship Specialty Start Date End Date Tyesha Schneider MD [address] [place] [address] PCP - General Family Medicine 07/02/19 documented as of this encounter
--- OUTSIDE RECORDS SUMMARY | 2024-04-16 02:47 | XMS_ITS | Encounter Summary ---
Author Organization [facility] Address [address] [place] [address] Care Team Providers Care Merchandise Executive Name Role Phone Unavailable Primary Care Provider Unavailabl e Encounter Details Date Type Department Care Team (Late st Contact Info) Description 11/24/2008 Before PRISM Converted Visit (Maple) [facility] - [facility] conversion [address] [place] [address] Raquel Nicole ARNP [address] [place] [address] Social History Tobacco Use Types Packs/Day Years Used Date Smoking Tobacco: Never Assessed Sex and Gender Information Value Date Recorded Sex Assigned at Not on file Gender Identity Not on file Sexual Orientation Not on file documented as of this encounter Plan of Treatment Not on file documented as of this encounter Procedures Procedure Name Priority Date/Time Associated Diagnosis Comments CYTOPATHOLOGY Routine 11/24/2008 0:00 EDT documented in this encounter Results * CYTOPATHOLOGY (11/24/2008 0:00 EDT) Pathology Report: CYTOPATHOLOGY REPORT ? Reports generated via electronic interface contain original data; ? however they are lacking the format of the original report. ? Caution should be taken when reading/interpreti ng unformatted reports. ? Name: ? DULCE ARMANDO ? Accession #: ? [id number] ? : ? 1950 (Age: 58) ??F ?Collect Date: ? 11/24/2008 ? Location: ? [facility] ? Receive Date: ? 11/26/2008 ? Provider: ?RAQUEL RHODES ? Copy to: ? Specimen/Source: ?Pap Test, Vagina/Cervix/Endo cervix, ThinPrep Imaging ? System with manual evaluation ? Last Menstrual Period: ? Previous Gynecologic Pathology: ? Yes: Atypia H/O 1994 ? ASC-US: 01/03 rare ? SPECIMEN ADEQUACY ? Unsatisfactory for Evaluation, [...] ? Roberta Eligio, CT(ASCP) ? Report Date: ??11/28/2008 09:05 ? End of Report ? JESSICA GUERRERO 11/24/2008 11/26/2008 Raquel RHODES PATHOLOGY ORDERABL ES [facility] [address] [place] [address] documented in this encounter Visit Diagnoses Not on filedocumented in this encounter
--- OUTSIDE RECORDS SUMMARY | 2024-04-16 02:47 | XMS_ITS | Encounter Summary ---
Author Organization [facility] Address [address] [place] [address] Care Team Providers Care Curing Oven Tender Name Role Phone Unavailable Primary Care Provider Unavailabl e Encounter Details Date Type Department Care Team (Late st Contact Info) Description 11/13/2006 Results Only [facility] - [facility] conversion [address] [place] [address] Raquel Nicole ARNP [address] [place] [address] Social History Tobacco Use Types Packs/Day Years Used Date Smoking Tobacco: Never Assessed Sex and Gender Information Value Date Recorded Sex Assigned at Not on file Gender Identity Not on file Sexual Orientation Not on file documented as of this encounter Plan of Treatment Not on file documented as of this encounter Procedures Procedure Name Priority Date/Time Associated Diagnosis Comments CYTOPATHOLOGY Routine 11/13/2006 0:00 EDT documented in this encounter Results * CYTOPATHOLOGY (11/13/2006 0:00 EDT) Pathology Report: CYTOPATHOLOGY REPORT Reports generated via electronic interface contain original data; however they are lacking the format of the original report. Caution should be taken when reading/interpreti ng unformatted reports. Name: ? DULCE ARMANDO ? Accession #: ? [id number] : ? 1950 (Age: 56) ??F ?Collect Date: ? 11/13/2006 Location: ? [facility] ? Receive Date: ? 11/15/2006 Provider: ?RAQUEL RHODES Copy to: ? Specimen/Source: ?ThinPrep Pap Test, Vagina/Cervix/Endo cervix, processed on Instart LogicPrep Imaging System, with manual evaluation Last Menstrual Period: ? Previous Gynecologic Pathology: ? ASC-US: 09/06 Rare Yes: H/O Atypia 1994 ? SPECIMEN ADEQUACY ? Satisfactory for Evaluation - transformation zone component present - scant squamous epithelial component GENERAL CATEGORIZATION ? Negative for Intraepithelial Lesion or Malignancy ? Document reviewed and electronically signed by: ? ALEX Duarte(ASCP) ? Report Date: ??11/16/2006 16:39 End of Report JESSICA GUERRERO 11/13/2006 11/15/2006 Raquel RHODES PATHOLOGY ORDERABL ES JESSICA GUERRERO [address] [place] [address] documented in this encounter Visit Diagnoses Not on filedocumented in this encounter
--- OUTSIDE RECORDS SUMMARY | 2024-04-16 02:47 | XMS_ITS | Encounter Summary ---
Author Organization [facility] [place] [address] Care Team Providers Care Format Proofreader Name Role Phone Tyesha Schneider MD Primary Care Provider [phone] Encounter Details Date Type Department Care Team (Latest Contact Info) Description 02/09/2024 Travel Social History Tobacco Use Types Packs/Day [...] 3:15 PM EDT Office Visit Dermatology at [address] [phone] Helio Gerardo MD [address] [facility], [place] [address] documented as of this encounter Visit Diagnoses Not on filedocumented in this encounter Care Teams Format Proofreader Relationship Specialty Start Date End Date Tyesha Schneider MD [address] [place] [address] PCP - General Family Medicine 07/02/19 documented as of this encounter
--- OUTSIDE RECORDS SUMMARY | 2024-04-16 02:47 | XMS_ITS | Encounter Summary ---
Author Organization [facility] [place] [address] Care Team Providers Care Adult Day Care Worker Name Role Phone Anna Segura MD Primary Care Provider [phone] Reason for Visit * Reason Comments Skin Check Encounter Details Date Type Department Care Team (Late st Contact Info) Description 05/31/2012 2:45 PM EDT Office Visit Dermatology [address] [place] [address] [address] [place] [address] Helio Gerardo MD [address] [facility], [facility] [place] [address] Pilar cyst (Primary Dx); Seborrheic keratosis Social History Tobacco Use Types Packs/Day Years Used Date Smoking Tobacco: Never Sex and Gender Information Value Date Recorded Sex Assigned at Not on file Gender Identity Not on file Sexual Orientation Not on file documented as of this encounter Progress Notes * Helio Gerardo MD - 05/31/2012 3:13 PM EDT Dictated documented in this encounter Miscellaneous Notes * Miscellaneous - Bere Godinez - 06/05/2012 10:05 AM EDT documented in this encounter Plan of Treatment Upcoming Encounters Date Type Department Care Team (Late st Contact Info) Description 02/10/2026 3:15 PM EDT Office Visit Dermatology at [place] [address] [facility] [place] [address] Helio Gerardo MD [address] [facility] [address], [place] [address] documented as of this encounter Visit Diagnoses Diagnosis Pilar cyst- Primary Sebaceous cyst Seborrheic keratosis Other seborrheic keratosis documented in this encounter Care Teams Adult Day Care Worker Relationship Specialty Start Date End Date Anna Segura MD [address] [place] [address] PCP - General 07/27/10 09/03/15 documented as of this encounter
--- OUTSIDE RECORDS SUMMARY | 2024-04-16 02:47 | XMS_ITS | Referral Summary ---
Author Organization [facility] Address [address] [place] [address] Care Team Providers Care Supervisor Fur Dressing Name Role Phone Unknown, Provider Primary Care Provider Encounters Date Type Department Care Team Description 01/24/2024 Lab Requisition [facility] Pathology & Laboratory Medicine - [address] [address] Gabi Burrell MD Encounter for other general examination from Last 3 Months Social History Tobacco Use Types Packs/Day Years Used Date Smoking Tobacco: Never Assessed Sex and Gender Information Value Date Recorded Sex Assigned at Not on file Gender Identity Not on file Sexual Orientation Not on file Plan of Treatment Not on file Procedures Procedure Name Priority Date/Time Associated Diagnosis Comments SURGICAL PATHOLOGY Today 01/19/2024 13 :13 EDT Encounter for other general examination from Last 3 Months Results * SURGICAL PATHOLOGY (01/19/2024 13:13 EDT) Note to Patient The following pathology results have been interpreted by your pathologist and may be available to you before your health provider has had the opportunity to review them. Please allow time for your provider to receive these results and explore management options, if applicable. 01/25/2024 10:50 EDT [facility] Final Diagnosis A. SKIN OF BACK, LEFT MID, SHAVE BIOPSY: - Seborrheic keratosis, inflamed. 01/25/2024 10:50 EDT [facility] Attestation By the signature below, the attending physician certifies that they have 1) personally conducted a gross and/or microscopic examination of the described specimen(s), and/or personally interpreted the results of laboratory testing of the described specimen(s), and 2) personally rendered or confirmed the above diagnosis. 01/25/2024 10:50 [facility] at 1050 Microscopic Description Orthohyperkeratosis and focal parakeratosis thicken the stratum corneum. There is formation of horn pseudocysts. The epidermis is hyperplastic with acanthosis and papillomatosis. The keratinocytes have a basaloid appearance with squamous eddies in many areas. Within the dermis, there is a moderately dense lymphohistiocytic infiltrate. The infiltrate extends into the epidermis with concomitant vacuolar change and keratinocyte necrosis. 01/25/2024 10:50 [facility] Clinical History 1 cm irregularly pigmented skin lesion 01/25/2024 10:50 [facility] Gross Description A. The specimen container is initially received mislabeled with a discrepancy in the specimen site. In accordance with the Laboratory Specimen Rejection Policy and Laboratory Accountability policy, PRESTON Bowen spoke with Leny, nephrology social worker, at [facility]. They have verified the correct specimen site is left mid back and have taken full responsibility for correcting the specimen with the correct specimen plate. Received in formalin labelled with proper patient identification (initials B, K) and left mid back is a shave biopsy of a buchanan-brown irregular macule (0.8 x 0.6 x 0.1 cm). The specimen is inked, bisected and submitted entirely in A1. SHRUTI VERONICA(ASCP) 01/24/2024 14:39 01/25/2024 10:50 T [facility] Performing Lab [facility] 01/25/2024 10:50 [facility] Scanned Images 01/25/2024 10:50 [facility] Tissue SPECIMEN FROM SKIN / Unknown 01/19/2024 13:13 EDT 01/24/2024 13:45 EDT Gabi Burrell MD PATHOLOGY ORDER ENIO [facility] [address] [place] [address] from Last 3 Months Care Teams Supervisor Fur Dressing Relationship Specialty Start Date End Date Unknown, Provider, PCP - General 07/27/15
--- OUTSIDE RECORDS SUMMARY | 2024-04-16 02:47 | XMS_ITS | Encounter Summary ---
Author Organization [facility] [place] [address] Care Team Providers Care Software Applications Designer Name Role Phone Tyesha Schneider MD Primary Care Provider [phone] Reason for Visit * Reason Comments Annual Exam Encounter Details Date Type Department Care Team (Late st Contact Info) Description 02/09/2024 4:00 PM EDT Office Visit Dermatology at [address] [phone] Helio Gerardo MD [address] [place] [address], [facility] [place] [address] History of basal cell carcinoma; Seborrheic keratosis Social History Tobacco Use Types Packs/Day Years Used Date Smoking Tobacco: Never Smokeless Tobacco: Never Sex and Gender Information Value Date Recorded Sex Assigned at Not on file Gender Identity Not on file Sexual Orientation Not on file documented as of this encounter Progress Notes * Helio Gerardo MD - 02/09/2024 4:00 PM EDT Problem: 1. Repeat skin checkup 2. 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 Is almost been 2 years since I saw her last. She had anumber of bad sunburns in the past and enjoys the joe-qc-hvtam bicycling in the summer and skiing/winter sports in the winter. Physical examination reveals a pleasant 73-year-old woman who has a benign examination of [...] 3:15 PM EDT Office Visit Dermatology at [address] [place] [phone] Helio Gerardo MD [address] [facility] [address], [place] [address] documented as of this encounter Visit Diagnoses Diagnosis History of basal cell carcinoma Personal history of other malignant neoplasm of skin Seborrheic keratosis Other seborrheic keratosis documented in this encounter Care Teams Software Applications Designer Relationship Specialty Start Date End Date Tyesha Schneider MD [address] [facility] [address] [place] [address] PCP - General Family Medicine 07/02/19 documented as of this encounter
--- OUTSIDE RECORDS SUMMARY | 2024-04-16 02:47 | XMS_ITS | Encounter Summary ---
Author Organization [facility] Address [address] [place] [address] Care Team Providers Care Manager Performance Improvement Name Role Phone Unknown, Provider Primary Care Provider Encounter Details Date Type Department Care Team (Late st Contact Info) Description 04/28/2023 Lab Requisition [facility] Pathology & Laboratory Medicine - [facility] [address] [place] [address] Isaura Cunningham, ULISES Disorder of the skin and subcutaneous tissue, unspecified Social History Tobacco Use Types Packs/Day Years Used Date Smoking Tobacco: Never Assessed Sex and Gender Information Value Date Recorded Sex Assigned at Not on file Gender Identity Not on file Sexual Orientation Not on file documented as of this encounter Plan of Treatment Not on file documented as of this encounter Procedures Procedure Name Priority Date/Time Associated Diagnosis Comments SURGICAL PATHOLOGY Today 04/27/2023 16 :30 EDT Disorder of the skin and subcutaneous tissue, unspecified documented in this encounter Results * SURGICAL PATHOLOGY (04/27/2023 16:30 EDT) Note to Patient The following pathology results have been interpreted by your pathologist and may be available to you before your health provider has had the opportunity to review them. Please allow time for your provider to receive these results and explore management options, if applicable. 05/02/2023 15:35 EDT [facility] Final Diagnosis A. SKIN OF BREAST, LEFT, LEFT LOWER QUADRANT, BIOPSY: - Seborrheic keratosis, irritated and inflamed. 05/02/2023 15:35 [facility] Attestation By the signature below, the attending physician certifies that they have 1) personally conducted a gross and/or microscopic examination of the described specimen(s), and/or personally interpreted the results of laboratory testing of the described specimen(s), and 2) personally rendered or confirmed the above diagnosis. 05/02/2023 15:35 [facility] at 1535 Microscopic Description Orthohyperkeratosis and focal parakeratosis thicken the stratum corneum. There is formation of horn pseudocysts. The epidermis is hyperplastic with acanthosis and papillomatosis. The keratinocytes have a basaloid appearance with squamous eddies in many areas. Within the dermis, there is a moderately dense lymphohistiocytic infiltrate. The infiltrate extends into the epidermis with concomitant vacuolar change and keratinocyte necrosis. 05/02/2023 15:35 [facility] Clinical History Skin lesion; clinical diagnosis code: L98.9 05/02/2023 15:35 [facility] Gross Description A. Received in formalin labelled with proper patient identification (initials B, K) and LLQ breast skin Bx are 4 irregular fragments of cobblestone, buchanan-nesbitt skin (ranging from 0.5 x 0.4 x 0.2 cm to 1.4 x 1.0 x 0.3 cm). The margin of the larger skin is inked blue. The specimen is entirely submitted in A1-A3. SHRUTI ALEJANDRO(ASCP) 05/01/2023 9:20 05/02/2023 15:35 [facility] Performing Lab [facility] 05/02/2023 15:35 [facility] Scanned Images 05/02/2023 15:35 [facility] Tissue SPECIMEN FROM SKIN / Unknown 04/27/2023 16:30 EDT 04/28/2023 18:27 EDT Isaura Cunningham PA-C PATHOLOGY ORDERABLES [facility] [address] [place] [id number] documented in this encounter Visit Diagnoses Diagnosis Disorder of the skin and subcutaneous tissue, unspecified documented in this encounter Care Teams Manager Performance Improvement Relationship Specialty Start Date End Date Unknown, Provider, PCP - General 07/27/15 documented as of this encounter
--- OUTSIDE RECORDS SUMMARY | 2024-04-16 02:47 | XMS_ITS | Encounter Summary ---
Author Organization [facility] Address [address] [place] [address] Care Team Providers Care Beater Operator Name Role Phone Unavailable Primary Care Provider Unavailabl e Encounter Details Date Type Department Care Team (Late st Contact Info) Description 07/04/2002 Results Only [facility] [address] [place] [address] Darshana Parr MD [address] [place] [id number] Social History Tobacco Use Types Packs/Day Years Used Date Smoking Tobacco: Never Assessed Sex and Gender Information Value Date Recorded Sex Assigned at Not on file Gender Identity Not on file Sexual Orientation Not on file documented as of this encounter Plan of Treatment Not on file documented as of this encounter Procedures Procedure Name Priority Date/Time Associated Diagnosis Comments SURGICAL PATHOLOGY Routine 07/04/2002 0:00 EST documented in this encounter Results * SURGICAL PATHOLOGY (07/04/2002 0:00 EST) Pathology Report: SURGICAL PATHOLOGY REPORT Reports generated via electronic interface contain original data; however they are lacking the format of the original report. Caution should be taken when reading/interpreti ng unformatted reports. Name: ? DULCE ARMANDO ? Accession #: ? [id number] ? : ? 1950 (Age: 51) ??F ? Collect Date: ? 07/04/2002 ? Location: ? [facility] ? Receive Date: ? 07/06/2002 ? Provider: DARSHANA PARR MD Copy to: SHAHANA CHILDERS MD ? Final Pathologic Diagnosis: A. ?Skin of chest wall, right, shave biopsy: 1. ?Melanocytic nevus, compound type. B. ?Skin of back, mid, shave biopsy: 1. ?Melanocytic nevus, junctional lentiginous type, with unusual architectural features and mild cytologic atypia. ? - Lesion extends to edge of shave biopsy specimen.] ? 2. ?Dermal fibrosis and sclerosis. Microscopic Description: ? Sections from right chest wall consist of a shave biopsy. ??Sections are of a pedunculated papule. ??The epidermis is hyperplastic with accentuation of the rete architecture and formation of horn pseudocysts. ??The papule is formed by a circumscribed and symmetric compound proliferation of melanocytes. ??The junctional component consists primarily of nests. ??The nests are generally small but vary to a mild degree in shape. ??The melanocytes are slightly enlarged but have relatively uniform round-oval nuclei and a moderate amount of cytoplasm containing melanin pigment. ??The dermal component consists of nests, cords, and strands of similar melanocytes showing fine unhairer maturation with descent. Sections from mid back consist of a shave biopsy of skin. ??The epidermis is hyperplastic with elongate and anastomosing rete ridges. ??There is a circumscribed proliferation of melanocytes within the epidermis that consists of nests and individual cells in a lentiginous pattern. ??The nests predominate and vary in size, shape, and spacing. ??Some of the nests bridge between rete ridges. Although the individual melanocytes are unevenly spaced in some areas, they show no tendency toward confluent growth or upward migration. ??The melanocytes are enlarged and show a mild degree of nuclear size and shape variation. ??There is papillary dermal fibroplasia. ??(Dr. Hollins)/keann Document reviewed and electronically signed by: Gabi Hollins MD Report ??Date: 07/08/2002 17:22 By the signature above, the attending physician certifies that he/she has personally conducted a gross and/or microscopic examination of the described specimens and rendered or confirmed the above diagnosis. Specimen(s) Received: A. ?Rt chest wall, d cm, clinically benign IDN, but recent increase pigment, R/O atypia (#1) B. ?Mid back, 3 mm, jct nevus in morphea, like background, R/O atypia, sl mottled Clinical History: ? Shave exc x2; multiple nevi Gross Description: ? Received in formalin labelled Prabha and #1 Rt chest wall is a shave biopsy of a buchanan-brown coarsely granular papule measuring 0.7 x 0.7 x 0.3 cm. The specimen is trisected and submitted entirely as (A). Received in formalin labelled Prabha and #2 mid back is a shave biopsy of skin measuring 0.6 x 0.4 cm which contains an eccentrically located irregularly bordered brown-black macule measuring 0.2 x 0.2 cm. ??The specimen is bisected and submitted entirely as (B). ??(Dr. Aviles)/kenan End of Report JESSICA GUERRERO 07/04/2002 07/06/2002 8:3 3 EST Darshana Parr MD PATHOLOGY ORDERABLES JESSICA GUERRERO [address] [place] [address] documented in this encounter Visit Diagnoses Not on filedocumented in this encounter
--- OUTSIDE RECORDS SUMMARY | 2024-04-16 02:47 | XMS_ITS | Encounter Summary ---
Author Organization [facility] Address [address] [place] [address] Care Team Providers Care Programmer Numerical Control Name Role Phone Unknown, Provider Primary Care Provider Encounter Details Date Type Department Care Team (Late st Contact Info) Description 01/24/2024 Lab Requisition [facility] Pathology & Laboratory Medicine - [facility] [address] [place] [address] Gabi Burrell MD [address] [place], [place] [id number] Encounter for other general examination Social History Tobacco Use Types Packs/Day Years [...] :13 EDT Encounter for other general examination documented in this encounter Results * SURGICAL PATHOLOGY (01/19/2024 13:13 EDT) Note to Patient The following pathology results have been interpreted by your pathologist and may be available to you before your health provider has had the opportunity to review them. Please allow time for your provider to receive these results and explore management options, if applicable. 01/25/2024 10:50 EDT [facility] Final Diagnosis A. SKIN OF BACK, LEFT MID, SHAVE BIOPSY: - Seborrheic keratosis, inflamed. 01/25/2024 10:50 [facility] Attestation By the signature below, the attending physician certifies that they have 1) personally conducted a gross and/or microscopic examination of the described specimen(s), and/or personally interpreted the results of laboratory testing of the described specimen(s), and 2) personally rendered or confirmed the above diagnosis. 01/25/2024 10:50 [facility] at 1050 Microscopic Description Orthohyperkeratosis [...] vacuolar change and keratinocyte necrosis. 01/25/2024 10:50 [facility] Clinical History 1 cm irregularly pigmented skin lesion 01/25/2024 10:50 [facility] Gross Description A. The specimen container is initially received mislabeled with a discrepancy in the specimen site. In accordance with the Laboratory Specimen Rejection Policy and Laboratory Accountability policy, PRESTON Bowen spoke with Leny, blow off worker, at [facility]. They have verified the correct specimen [...] A1. SHRUTI VERONICA(ASCP) 01/24/2024 14:39 01/25/2024 10:50 [facility] Performing Lab [facility] 01/25/2024 10:50 [facility] Scanned Images 01/25/2024 10:50 [facility] Tissue SPECIMEN FROM SKIN / Unknown 01/19/2024 13:13 EDT 01/24/2024 13:45 EDT Gabi Burrell MD PATHOLOGY ORDER ENIO [facility] [address] [place] [address] documented in this encounter Visit Diagnoses Diagnosis Encounter for other general examination documented in this encounter Care Teams Programmer Numerical Control Relationship Specialty Start Date End Date Unknown, Provider, PCP - General 07/27/15 documented as of this encounter
--- OUTSIDE RECORDS SUMMARY | 2024-04-16 02:47 | XMS_ITS | Clinical Summary ---
Author Organization [facility] Address [address] [place] [address] Care Team Providers Care Bench Patternmaker Metal Name Role Phone Unknown, Provider Primary Care Provider Encounters Date Type Department Care Team Description 01/24/2024 Lab Requisition [facility] Pathology & Laboratory Medicine - [address] [address] Gabi Burrell MD Encounter for other general examination from Last 3 Months Social History Tobacco Use Types Packs/Day Years Used Date Smoking Tobacco: Never Assessed Sex and Gender Information Value Date Recorded Sex Assigned at Not on file Gender Identity Not on file Sexual Orientation Not on file Plan of Treatment Health Maintenance Due Date Last Done Comments Hepatitis C Screen 1950 RSV Immunization ( o r 60+ Years) (1 - 1-dose 60+ series) 2012 Fall Risk Screening 2017 COVID-19 Vaccine ( season) 2023 Procedures Procedure Name Priority Date/Time Associated Diagnosis [...] management options, if applicable. 01/25/2024 10:50 EDT [facility] Final Diagnosis A. SKIN OF BACK, LEFT MID, SHAVE BIOPSY: - Seborrheic keratosis, inflamed. 01/25/2024 10:50 [facility] Attestation By the signature below, the attending physician certifies that they have 1) personally conducted a gross and/or microscopic examination of the described specimen(s), and/or personally interpreted the results of laboratory testing of the described specimen(s), and 2) personally rendered or confirmed the above diagnosis. 01/25/2024 10:50 [facility] at 1050 Microscopic Description [...] vacuolar change and keratinocyte necrosis. 01/25/2024 10:50 [facility] Clinical History 1 cm irregularly pigmented skin lesion 01/25/2024 10:50 [facility] Gross Description A. The specimen container is initially received mislabeled with a discrepancy in the specimen site. In accordance with the Laboratory Specimen Rejection Policy and Laboratory Accountability policy, PRESTON Bowen spoke with Leny, pathology technician, at [facility]. They have verified the correct specimen [...] A1. SHRUTI VERONICA(ASCP) 01/24/2024 14:39 01/25/2024 10:50 [facility] Performing Lab [facility] 01/25/2024 10:50 [facility] Scanned Images 01/25/2024 10:50 [facility] Tissue SPECIMEN FROM SKIN / Unknown 01/19/2024 13:13 EDT 01/24/2024 13:45 EDT Gabi Burrell MD PATHOLOGY ORDER ENIO [facility] [address] [place] [address] from Last 3 Months Care Teams Bench Patternmaker Metal Relationship Specialty Start Date End Date Unknown, Provider, PCP - General 07/27/15
--- OUTSIDE RECORDS SUMMARY | 2024-04-16 02:47 | XMS_ITS | Encounter Summary ---
Author Organization [facility] [address] Care Team Providers Care Dock Coordinator Name Role Phone Tyesha Schneider MD Primary Care Provider [phone] Encounter Details Date Type Department Care Team (Latest Contact Info) Description 02/14/2023 Travel Social History Tobacco Use Types Packs/Day [...] 3:15 PM EDT Office Visit Dermatology at [address] [phone] Helio Gerardo MD [address] [facility] [place] [address] documented as of this encounter Visit Diagnoses Not on filedocumented in this encounter Care Teams Dock Coordinator Relationship Specialty Start Date End Date Tyesha Schneider MD [address] [place] [address] [place] [address] PCP - General Family Medicine 07/02/19 documented as of this encounter
--- OUTSIDE RECORDS SUMMARY | 2024-04-16 02:47 | XMS_ITS | Encounter Summary ---
[place] [address] Care Team Providers Care Yarn Mercerizer Operator Helper Name Role Phone Anna Segura MD Primary Care Provider [phone] Reason for Visit * Reason Comments Skin Check Encounter Details Date Type Department Care Team (Late st Contact Info) Description 04/28/2011 1:15 PM EDT Office Visit Dermatology [address] [place] [address] [address] [place] [address] Helio Gerardo MD [address] [facility], [facility] [place] [address] Seborrheic keratosis (Primary Dx); Pylar cyst Social History Tobacco Use Types Packs/Day Years Used Date Smoking Tobacco: Never Sex and Gender Information Value Date Recorded Sex Assigned at Not on file Gender Identity Not on file Sexual Orientation Not on file documented as of this encounter Progress Notes * Helio Gerardo MD - 04/28/2011 1:31 PM EDT Problem: Skin checkup. Lindy follows up after last being seen in September of 2009. She would like to have another skin checkup again. She reminds me that her mother and sister have had many moles and have skin checkup on a regular basis. She is not aware of any personal or family history of skin cancer or melanoma. She has always tanned easily and burned rarely. Physical examination reveals a pleasant 60-year-old woman with dark graying hair and brown eyes. She has several benign seborrheic keratoses on the flanks. She today has no dermatitis or verruca. She still continues to have a blue nevus about 1.5mm diameter on the right scapha of her ear. Otherwise careful examination of the head, neck, chest, back, hands, arms, forearms, thighs and calves is benign. Assessment & Plan: Benign skin examination benign seborrheic keratoses. a. Patient reassured about benign skin examination. b. Continue sun avoidance precautions. c. RTC p.r.n., do not feel that yearly visits are necessary. I will be happy to see her back for new lesions/concerns. Cc: Anna Segura MD NOTE: The patient points to a pilar cyst present in the left mid parietal scalp. This is not symptomatic and so no treatment is planned for this. documented in this encounter Plan of Treatment Upcoming Encounters Date Type Department Care Team (Late st Contact Info) Description 02/10/2026 3:15 PM EDT Office Visit Dermatology at [place] [address] [place] [address] Helio Gerardo MD [address] [facility] [place] [address] documented as of this encounter Visit Diagnoses Diagnosis Seborrheic keratosis- Primary Other seborrheic keratosis Pylar cyst Follicular cyst of ovary documented in this encounter Care Teams Yarn Mercerizer Operator Helper Relationship Specialty Start Date End Date Anna Segura MD [address] [place] [address] PCP - General 07/27/10 09/03/15 documented as of this encounter
--- OUTSIDE RECORDS SUMMARY | 2024-04-16 02:47 | XMS_ITS | Encounter Summary ---
Author Organization [facility] Address [address] [place] [address] Care Team Providers Care Chili Pepper Grinder Name Role Phone Unavailable Primary Care Provider Unavailabl e Encounter Details Date Type Department Care Team (Late st Contact Info) Description 11/11/2005 Results Only [facility] - Maple conversion [address] [place] [address] Raquel Nicole ARNP [address] [place] [address] Social History Tobacco Use Types Packs/Day Years Used Date Smoking Tobacco: Never Assessed Sex and Gender Information Value Date Recorded Sex Assigned at Not on file Gender Identity Not on file Sexual Orientation Not on file documented as of this encounter Plan of Treatment Not on file documented as of this encounter Procedures Procedure Name Priority Date/Time Associated Diagnosis Comments CYTOPATHOLOGY Routine 11/11/2005 0:00 EST documented in this encounter Results * CYTOPATHOLOGY (11/11/2005 0:00 EST) Pathology Report: CYTOPATHOLOGY REPORT Reports generated via electronic interface contain original data; however they are lacking the format of the original report. Caution should be taken when reading/interpreti ng unformatted reports. Name: ? DULCE ARMANDO ? Accession #: ? [id number] : ? 1950 (Age: 55) ??F ?Collect Date: ? 11/11/2005 Location: ? [facility] ? Receive Date: ? 11/15/2005 Provider: ?RAQUEL RHODES Copy to: ? Specimen/Source: ?ThinPrep Pap Test, Vagina/Cervix/Endo cervix, processed on K[employer] TechnologiesPrep Imaging System, with manual evaluation Last Menstrual Period: ? Previous Gynecologic Pathology: ? Yes: H/O 94 Atypia, 09/06 Rare Ascus Other: ? Additional clinical information: Previous Atypical ? SPECIMEN ADEQUACY ? Satisfactory for Evaluation - transformation zone component present GENERAL CATEGORIZATION ? Negative for Intraepithelial Lesion or Malignancy ? Document reviewed and electronically signed by: ? ALEX Christianson(ASCP) ? Report Date: ??11/17/2005 11:21 End of Report JESSICA GUERRERO 11/11/2005 11/15/2005 Raquel RHODES PATHOLOGY ORDERABL ES JESSICA GUERRERO [address] [place] [address] documented in this encounter Visit Diagnoses Not on filedocumented in this encounter
--- OUTSIDE RECORDS SUMMARY | 2024-04-16 02:47 | XMS_ITS | Encounter Summary ---
Author Organization [facility] [place] [address] Care Team Providers Care Residence Life Director Name Role Phone Unavailable Primary Care Provider Unavailabl e Reason for Visit * Reason Comments Skin Check Encounter Details Date Type Department Care Team (Late st Contact Info) Description 10/06/2015 2:00 PM EST Office Visit Dermatology at [address] [address] Helio Gerardo MD [address] [facility], [place] [place] [address] Seborrheic keratosis; Notalgia paresthetica; Nevus; Seborrheic keratosis, inflamed Social History Tobacco Use Types Packs/Day Years Used Date Smoking Tobacco: Never Sex and Gender Information Value Date Recorded Sex Assigned at Not on file Gender Identity Not on file Sexual Orientation Not on file documented as of this encounter Progress Notes * Helio Gerardo MD - 10/06/2015 2:29 PM EST Problem: Repeat skin checkup. Lindy follows up about two years after last being seen concerned about a changing mole, enlarging and somewhat itchy, on her left flank. She would just like to have a general skin checkup as well. Physical examination reveals a pleasant now 65-year-old woman who continues to have a hyperpigmented patch on her right back, just right of midline, just above the bra strap. 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 She does tend to itch at it intermittently she states. She has a number of waxy stuck-on appearing seborrheic keratoses on her back, which are entirely unremarkable and benign appearing. She has a larger sub K, which appears to be made up of two separate adjoining sub Ks, present on her left flank. It is about 1.5 cm in length. Otherwise, careful examination of the head and the neck, the chest and the back, the hands, arms, forearms, thighs, and calves, including the soles of the feet and toe web spaces, is entirely benign. The patient continues to have an apparent blue nevus about 1.5 mm in diameter on the scapha of her right ear. Assessment and Plan: 1. Benign seborrheic keratoses, benign mole examination, and benign notalgia paresthetica. a. Recommended Sarna lotion over the counter for symptomatic relief of itching on her back. b. Patient reassured about benign skin examination. c. Recommend I see her again on a p.r.n. basis for new lesions/concerns. 2. Seborrheic keratosis, inflamed, left flank. a. Because this is often rubbed and irritated and itchy by her bra strap, under which it lies, this today was anesthetized and removed with shave biopsy. b. Submitted for pathologic analysis. c. Wound care instructions and supplies given. Return to clinic in another two or three years for repeat check. COPY: Alise [email or web address] documented in this encounter Plan of Treatment Upcoming Encounters Date Type Department Care Team (Late st Contact Info) Description 02/10/2026 3:15 PM EDT Office Visit Dermatology at [place] [address] [facility] [place] [address] Helio Gerardo MD [address] [facility] [place] [address] documented as of this encounter Procedures Procedure Name Priority Date/Time Associated Diagnosis Comments SURGICAL PATHOLOGY SCAN 10/13/2015 12:00 AM EST documented in this encounter Results * SCAN DOC: SURGICAL PATHOLOGY (10/13/2015 12:00 AM EST) Scanning Provider MEDIA MGR SCAN EXT O RDR/RSLT documented in this encounter Visit Diagnoses Diagnosis Seborrheic keratosis Other seborrheic keratosis Notalgia paresthetica Disturbance of skin sensation Nevus Benign neoplasm of skin, site unspecified Seborrheic keratosis, inflamed Inflamed seborrheic keratosis documented in this encounter
--- OUTSIDE RECORDS SUMMARY | 2024-04-16 02:47 | XMS_ITS | Encounter Summary ---
Author Organization [facility] [place] [address] Care Team Providers Care Tool Supervisor Name Role Phone Anna Segura MD Primary Care Provider [phone] Encounter Details Date Type Department Care Team (Late st Contact Info) Description 06/14/2013 11:00 AM EDT Office Visit Dermatology [address] [facility] [address] [place] [address] Helio Gerardo MD 580 [facility], [place] [address] Seborrheic keratosis (Primary Dx); Hemangioma; Notalgia paresthetica Social History Tobacco Use Types Packs/Day Years Used Date Smoking Tobacco: Never Sex and Gender Information Value Date Recorded Sex Assigned at Not on file Gender Identity Not on file Sexual Orientation Not on file documented as of this encounter Progress Notes * Helio Gerardo MD - 06/14/2013 11:13 AM EDT Problem: Repeat skin checkup. Lindy follows up after last being seen in May 2012. She has many moles, and she would like me to check them for her. She is now 62. None of them has been symptomatic or bothersome. 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 Physical examination today reveals again a 1-cm pilar cyst on the mid central posterior parietal scalp. She has a seborrheic keratosis present on the left upper nasal sidewall measuring 4 mm in diameter. She has a benign examination of the head and the neck, the chest, the back, hands, arms, forearms, thighs, and calves. She has a blue nevus, about 1.5 mm, on the right scapha of her ear. She has a hyperpigmented, 4-mm patch on the right midback consistent with notalgia paresthetica; this is often itchy she states. She has numerous seborrheic keratoses on her back. Assessment and Plan: 1. Benign skin examination. a. Patient reassured about benign seborrheic keratoses and benign otero red hemangiomas. b. No treatment necessary. 2. Notalgia paresthetica. a. Patient reassured regarding this. b. We discussed the option of Sarna lotion. c. Discussed the etiology and pathogenesis of this. 3. Pilar cyst. a. Patient has decided to hold off on excision of this for now. b. Return to the clinic here p.r.n. COPY: Anna Segura M.D. documented in this encounter Plan of Treatment Upcoming Encounters Date Type Department Care Team (Late st Contact Info) Description 02/10/2026 3:15 PM EDT Office Visit Dermatology at [address] [address] Helio Gerardo MD [address] [place] [address], [facility] [place] [address] documented as of this encounter Visit Diagnoses Diagnosis Seborrheic keratosis- Primary Other seborrheic keratosis Hemangioma Hemangioma of unspecified site Notalgia paresthetica Disturbance of skin sensation documented in this encounter Care Teams Tool Supervisor Relationship Specialty Start Date End Date Anna Segura MD [address] [place] [address] PCP - General 07/27/10 09/03/15 documented as of this encounter
--- OUTSIDE RECORDS SUMMARY | 2024-04-16 02:47 | XMS_ITS | Encounter Summary ---
Author Organization [facility] [place] [address] Care Team Providers Care Parcel Post Clerk Name Role Phone Tyesha Schneider MD Primary Care Provider [phone] Encounter Details Date Type Department Care Team (Latest Contact Info) Description 09/19/2022 Travel Social History Tobacco Use Types Packs/Day [...] 3:15 PM EDT Office Visit Dermatology at [address] [phone] Helio Gerardo MD [address] [facility], [place] [address] documented as of this encounter Visit Diagnoses Not on filedocumented in this encounter Care Teams Parcel Post Clerk Relationship Specialty Start Date End Date Tyesha Schneider MD [address] [place] [address] PCP - General Family Medicine 07/02/19 documented as of this encounter
--- OUTSIDE RECORDS SUMMARY | 2024-04-16 02:47 | XMS_ITS | Encounter Summary ---
Author Organization [facility] Address [address] [place] [address] Care Team Providers Care Machine Milker Name Role Phone Unavailable Primary Care Provider Unavailabl e Encounter Details Date Type Department Care Team (Late st Contact Info) Description 11/16/2007 Results Only [facility] - Maple conversion [address] [place] [address] Raquel Nicole ARNP [address] [place] [address] Social History Tobacco Use Types Packs/Day Years Used Date Smoking Tobacco: Never Assessed Sex and Gender Information Value Date Recorded Sex Assigned at Not on file Gender Identity Not on file Sexual Orientation Not on file documented as of this encounter Plan of Treatment Not on file documented as of this encounter Procedures Procedure Name Priority Date/Time Associated Diagnosis Comments CYTOPATHOLOGY Routine 11/16/2007 0:00 EDT documented in this encounter Results * CYTOPATHOLOGY (11/16/2007 0:00 EDT) Pathology Report: CYTOPATHOLOGY REPORT Reports generated via electronic interface contain original data; however they are lacking the format of the original report. Caution should be taken when reading/interpreti ng unformatted reports. Name: ? DULCE ARMANDO ? Accession #: ? [id number] : ? 1950 (Age: 57) ??F ?Collect Date: ? 11/16/2007 Location: ? [facility] ? Receive Date: ? 11/20/2007 Provider: ?RAQUEL RHODES Copy to: ? Specimen/Source: ?ThinPrep Pap Test, Vagina/Cervix/Endo cervix, processed on [employer] ThinPrep Imaging System, with manual evaluation Last Menstrual Period: ? Previous Gynecologic Pathology: ? ASC-US: Rare 09/06 Yes: H/o Atypia 1994 Other: ? HPVA - HPV testing requested if ASC-US on the current ThinPrep Pap test. ? SPECIMEN ADEQUACY ? Satisfactory for Evaluation - transformation zone component present - scant squamous epithelial component GENERAL CATEGORIZATION ? Negative for Intraepithelial Lesion or Malignancy ? Document reviewed and electronically signed by: ? ALEX Christianson(ASCP) ? Report Date: ??11/26/2007 07:54 End of Report JESSICA GUERRERO 11/16/2007 11/20/2007 Raquel RHODES PATHOLOGY ORDERABL ES JESSICA GUERRERO [address] [place] [address] documented in this encounter Visit Diagnoses Not on filedocumented in this encounter
--- OUTSIDE RECORDS SUMMARY | 2024-04-16 02:47 | XMS_ITS | Encounter Summary ---
Author Organization [facility] Address [address] [place] [address] Care Team Providers Care Family Living Educator Name Role Phone Unavailable Primary Care Provider Unavailabl e Encounter Details Date Type Department Care Team (Late st Contact Info) Description 10/22/2010 Results Only [facility] - [facility] ([facility] [address] [place], [place] [address] Raquel Nicole ARNP [address] [place] [address] Social History Tobacco Use Types Packs/Day Years Used Date Smoking Tobacco: Never Assessed Sex and Gender Information Value Date Recorded Sex Assigned at Not on file Gender Identity Not on file Sexual Orientation Not on file documented as of this encounter Plan of Treatment Not on file documented as of this encounter Procedures Procedure Name Priority Date/Time Associated Diagnosis Comments CYTOPATHOLOGY Routine 10/22/2010 0:00 EST documented in this encounter Results * CYTOPATHOLOGY (10/22/2010 0:00 EST) Pathology Report: CYTOPATHOLOGY REPORT ? Reports generated via electronic interface contain original data; ? however they are lacking the format of the original report. ? Caution should be taken when reading/interpreti ng unformatted reports. ? Name: ? DULCE ARMANDO ? Accession #: ? [id number] ? : ? 1950 (Age: 60) ??F ?Collect Date: ? 10/22/2010 ? Location: ? [facility] ? Receive Date: ? 10/26/2010 ? Provider: ?RAQUEL RHODES ? Copy to: ? Specimen/Source: ?Pap Test, Vagina/Cervix/Endo cervix, ThinPrep Imaging ? System with manual evaluation ? Last Menstrual Period: ? Previous Gynecologic Pathology: ? Yes: H/o 1994 Atypia ? ASC-US: Rare 01/03 ? SPECIMEN ADEQUACY ? Satisfactory for Evaluation ? - transformation zone component present ? - scant squamous epithelial component secondary to excessive inflammation ? GENERAL CATEGORIZATION ? Negative for Intraepithelial Lesion or Malignancy ? Document reviewed and electronically signed by: ? Kwabena Stumler, CT(ASCP) ? Report Date: ??10/28/2010 10:49 ? End of Report ? [facility] 10/22/2010 10/26/2010 Raquel RHODES PATHOLOGY ORDERABL ES [facility] [address] [place] [address] documented in this encounter Visit Diagnoses Not on filedocumented in this encounter
--- OUTSIDE RECORDS SUMMARY | 2024-04-16 02:47 | XMS_ITS | Encounter Summary ---
Author Organization [facility] Address [facility] [place] [address] Care Team Providers Care Manager Mba Name Role Phone Tyesha Schneider MD Primary Care Provider [phone] Encounter Details Date Type Department Care Team (Late st Contact Info) Description 02/16/2023 9:45 AM EDT Office Visit Dermatology at [facility] [address] [place] [address] Dorys Mckeon MD [facility] [place] [address] Inflamed seborrheic keratosis; Seborrheic keratoses; Avelar angioma; Multiple benign nevi of upper extremity, lower extremity, and trunk; Lentigines Social History Tobacco Use Types Packs/Day Years Used Date Smoking Tobacco: Never Smokeless Tobacco: Never Sex and Gender Information Value Date Recorded Sex Assigned at Not on file Gender Identity Not on file Sexual Orientation Not on file documented as of this encounter Progress Notes * Dorys Mckeon MD - 02/16/2023 9:45 AM EDT Images from the original note were not included. DEPARTMENT OF DERMATOLOGY Medical Dermatology Clinic Provider: Dorys Mckeon MD Patient's preferred name Perla Preferred contact method for results []myDH []Letter [...] history N SOCIAL HISTORY Occupation: Retired Other: Pre-Procedure Questions Details Allergy to lidocaine, epinephrine, Dermabond, chlorhexidine, or adhesives N Bleeding disorder or blood thinners N Pacemaker, defibrillator, deep brain stimulator, cochlear implant N History of Present Illness: Lindy Armando is a 72 y.o. Patient returns to clinic today for concerning spot on face: - Lesion on right cheek, hx of being more crusty. - Spot on left taoism - Patient request an exam of back. Last visit at Dermatology: 04/05/2021 Medications: Reviewed in eD-H Allergies: Reviewed in eD-H Skin Examination: Focused skin examination of the face and back was normal with the exception of the findings below. Assessment/Plan # Inflamed seborrheic keratosis - stuck-on brown/nesbitt waxy papule with erythema located on the right cheek - Reassured of the benign nature of these lesions - Given inflamed appearance & irritated nature, joint decision to proceed with treatment with LN2 today - Procedure: Destruction with Liquid Nitrogen Cryotherapy Number of lesions - 1 The patient's verbal consent for liquid nitrogen was obtained. Risks and benefits were explained. The possible need for additional liquid nitrogen was reviewed. Lesion(s) were treated with LN2 [id number] freeze-thaw cycle. The patient tolerated the procedure well. Wound care was reviewed. 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 - Reassured of the benign nature of these lesions. No treatment needed. # Melanocytic nevi - Scattered medium-brown macules and papules on the back - Morphology reassuring for benign nevi. - Reassured of benign appearance on exam today. - Reviewed warning signs of skin cancer - Recommend daily sun protection with protective clothing and SPF 30+ # Solar lentigines - 0.3-0.6cm light-brown evenly pigmented, well-demarcated macules in a photodistributed pattern on the upper back - Recommend diligent sun protection (hats/shade/clothing/sunscreen) - Discussed warning signs of skin cancer Other: N/A RTC: PRN []Note routed to secretary board of commissioners []Recall placed in scheduling system []Appointment scheduled at checkout Scribe attestation: NIKKI Villa has performed the documentation for this encounter in thepresence of and acting as a scribe for Dorys Mckeon MD. I performed the above scribed service and agree with the accuracy of the documentation in this encounter. Reviewed and signed by: Dorys Mckeon MD Dermatology [facility] documented in this encounter Plan of Treatment Upcoming Encounters Date Type Department Care Team (Late st Contact Info) Description 02/10/2026 3:15 PM EDT Office Visit Dermatology at [place] [address] [facility] [place] [address] Helio Gerardo MD [address] [facility] [facility] [address], [place] [address] documented as of this encounter Visit Diagnoses Diagnosis Inflamed seborrheic keratosis Seborrheic keratoses Avelar angioma Nevus, non-neoplastic Multiple benign nevi of upper extremity, lower extremity, and trunk Lentigines Other dyschromia documented in this encounter Care Teams Manager Mba Relationship Specialty Start Date End Date Tyesha Schneider MD [address] [place] [address] [address] [facility] [address] [place] [address] PCP - General Family Medicine 07/02/19 documented as of this encounter
--- OUTSIDE RECORDS SUMMARY | 2024-04-16 02:48 | XMS_ITS | Encounter Summary ---
Author Organization [facility] [place] [address] Care Team Providers Care Traffic Control Flagger Name Role Phone Anna Segura MD Primary Care Provider Encounter Details Date Type Department Care Team (Late st Contact Info) Description 04/27/2011 Abstract Dermatology [address] [place], [place] [id number] Anna Guillaume, RN Social History Tobacco Use Types Packs/Day Years [...] 3:15 PM EDT Office Visit Dermatology at [place] [address] [place] [address] Helio Gerardo MD [address] [facility], [place] [address] documented as of this encounter Visit Diagnoses Not on filedocumented in this encounter Care Teams Traffic Control Flagger Relationship Specialty Start Date End Date Anna Segura MD [address] [place] [address] PCP - General 07/27/10 09/03/15 documented as of this encounter
[2024-04-16 08:23] LABS: Bilirubin Negative (Negative); Blood Negative (Negative); Clarity Sl Cloudy (Clear); Glucose Negative (Negative); Ketones Negative (Negative); Leukocyte Esterase Negative (Negative); Nitrite Negative (Negative); Specific Gravity 1.015 (1.005-1.025); Urobilinogen 0.2 mg/dL (Up to 0.2)
[2024-04-16 09:51] LABS: ALT 37 U/L (14-59); AST 30 U/L (15-37); Alkaline Phosphatase 85 U/L (46-116); Anion Gap 9.6 mmol/L (3-11); BUN 20 mg/dL (7-18); Bilirubin, Total 0.73 mg/dL (0.2-1.0); CO2 29.4 mmol/L (21.0-32.0); CREATININE 0.8 mg/dL (0.55-1.02); Calcium 8.9 mg/dL (8.5-10.1); Chloride 104 mmol/L (98-107); Estimated GFR 78.72 (mL/min/1.73m2); Glucose 97 mg/dL (74-106); Potassium 3.6 mmol/L (3.5-5.1); Sodium 143 mmol/L (136-145); Total Protein 7.5 g/dL (6.4-8.2); Vitamin D 25 Total 36.4 ng/mL (30-100)
== END 2024-04-16 02:45 | disposition home or self-care (01) ==
PROVIDERS: PCP Family Medicine; Visit Provider Family Medicine
DX: R30.0 Dysuria (principal); I10 Essential (primary) hypertension; M81.0 Age-related osteoporosis without current pathological fracture
CPT/HCPCS: 36415; 80053; 82306; 81003

== ENCOUNTER 2024-06-27 01:32 | Outpatient (CLI) | payer MEDICARE, SELFPAY ==
--- NOTE | 2024-06-27 06:30 | DI.MAMMO_ITS ---
Exam(s) MAMMO SCREENING EXAM: MAMMO SCREENING CLINICAL HISTORY: screening,Z12.39. TECHNIQUE: Bilateral full field digital CC and MLO mammographic images were obtained with 3D tomosyn thesis and utilizing computer aided detection (CAD). COMPARISON: Prior mammograms were reviewed. FINDINGS: There has been no significant change in the appearance and distribution of the fibroglandular tissue. Benign-appearing microcalcifications in the right breast again noted. There are no new spiculated masses nor malignant appearing microcalcification groups. There is no significant architectural distortion nor skin thickening-retraction. IMPRESSION: No radiographic evidence of malignancy. BI-RADS Category 1 - Negative Breast Density - Category B - Scattered areas of fibroglandular density Breast density Category C or D implies that the patient has dense breast tissue. Dense breast tissue can make it harder to find cancer on a mammogram. Dense breast tissue is also associated with an incr eased risk of breast cancer. This information about the result of the mammogram report was provided to the patient to raise their awareness. Use this report when you speak with the patient about their risks for breast cancer, which includes their family history. At that time, you may recommend additional screening tests (Ultrasoun d or MRI) as these tests may add significant information. A negative radiographic report should not delay biopsy if a dominant or clinically suspicious mass is present. Up to ten percent of cancers are not identified on mammography. A negative report may reinforce clinical impression. Adenosis and dense breasts may obscure an underlying neoplasm. False positive reports average 6 to 10%. Patient will receive a letter notifying them of these results.
== END 2024-06-27 01:52 ==
LOC: DI 01:32
PROVIDERS: PCP Family Medicine; Visit Provider Family Medicine
DX: Z12.31 Encounter for screening mammogram for malignant neoplasm of breast (principal)
CPT/HCPCS: 77063; 77067

== ENCOUNTER 2024-10-30 17:47 | Outpatient (CLI) | payer MEDICARE, SELFPAY ==
[2024-10-30 16:58] LABS: Anion Gap 6.8 mmol/L (3-11); BUN 23 mg/dL (7-18); CO2 30.2 mmol/L (21.0-32.0); CREATININE 0.8 mg/dL (0.55-1.02); Calcium 8.9 mg/dL (8.5-10.1); Chloride 106 mmol/L (98-107); Estimated GFR 78.24 (mL/min/1.73m2); Glucose 105 mg/dL (74-106); Potassium 3.6 mmol/L (3.5-5.1); Sodium 143 mmol/L (136-145)
== END 2024-10-30 17:48 | disposition home or self-care (01) ==
LOC: LBO 17:51
PROVIDERS: PCP Family Medicine; Visit Provider Family Medicine
DX: I10 Essential (primary) hypertension (principal)
CPT/HCPCS: 36415; 80048

== ENCOUNTER 2024-12-12 11:29 | Outpatient (CLI) | payer MEDICARE, SELFPAY ==
[2024-12-12 10:49] LABS: Abs Immature Grans 0.02 10^3/uL (0.0-0.06); Absolute Basophil Count 0.08 10^3/uL (0.0-0.2); Absolute Eosinophil Count 0.09 10^3/uL (0.0-0.7); Absolute Lymphocyte Count 1.36 10^3/uL (1.2-3.4); Absolute Monocyte Count 0.44 10^3/uL (0.1-0.8); Absolute Neutrophil Count 4.98 10^3/uL (1.2-6.7); Basophils % 1.1 %; Eosinophils % 1.3 %; HCT 38.5 % (36.0-46.0); HGB 11.9 g/dL (11.2-15.7); Immature Grans % 0.3 %; Lymphocytes % 19.5 %; MCH 25.9 pg (27.0-33.0); MCHC 30.9 % (32.0-36.0); MCV 84 fL (80-95); MPV 10.5 fL (8.0-11.0); Monocytes % 6.3 %; Neutrophils % 71.5 %; Platelet Count 308 10^3/uL (130-400); RBC 4.59 10^6/uL (3.93-5.22); RDW 14.4 % (11.7-14.6); RDW-SD 43.7 fL; WBC 6.97 10^3/uL (4.4-10.8)
[2024-12-12 10:50] LABS: Bilirubin Negative (Negative); Blood Trace-intact (Negative); Clarity Clear (Clear); Glucose Negative (Negative); Ketones Negative (Negative); Leukocyte Esterase Negative (Negative); Nitrite Negative (Negative); Specific Gravity <= 1.005 (1.005-1.025); Urobilinogen 0.2 mg/dL (Up to 0.2); pH 5.5 (5-8)
[2024-12-12 10:58] LABS: Bacteria Rare HPF (Negative); C & S Indicated? No; Casts Negative LPF (Negative); Crystals Negative HPF (Negative); Epithelial Cells Rare HPF (Negative); Mucus Negative (Negative); RBC 0-2 HPF (0-2); WBC Negative HPF (0-5)
[2024-12-12 11:54] LABS: ALT 31 U/L (14-59); AST 30 U/L (15-37); Alkaline Phosphatase 93 U/L (46-116); Anion Gap 7.2 mmol/L (3-11); BUN 16 mg/dL (7-18); Bilirubin, Total 0.7 mg/dL (0.2-1.0); CO2 29.8 mmol/L (21.0-32.0); CREATININE 0.9 mg/dL (0.55-1.02); Calcium 9.2 mg/dL (8.5-10.1); Calculated LDL 115 mg/dL (<100); Chloride 105 mmol/L (98-107); Cholesterol 221 mg/dL (<200); Estimated GFR 67.92 (mL/min/1.73m2); Glucose 136 mg/dL (74-106); HDL Cholesterol 92 mg/dL (>or=50); Potassium 4.1 mmol/L (3.5-5.1); Sodium 142 mmol/L (136-145); TSH (W/Ref FT4) 2.01 uIU/mL (0.36-3.74); Total Protein 7.5 g/dL (6.4-8.2); Triglyceride 70 mg/dL (<150)
== END 2024-12-12 11:30 | disposition home or self-care (01) ==
LOC: LBO 11:33
PROVIDERS: PCP Family Medicine; Visit Provider Family Medicine
DX: R30.0 Dysuria (principal); G31.84 Mild cognitive impairment of uncertain or unknown etiology; Z13.6 Encounter for screening for cardiovascular disorders; E78.2 Mixed hyperlipidemia; E03.9 Hypothyroidism, unspecified; Z00.00 Encounter for general adult medical examination without abnormal findings
CPT/HCPCS: 36415; 80053; 80061; 81003; 81015; 84443; 85025

== ENCOUNTER 2025-05-16 03:45 | Outpatient (CLI) | payer MEDICARE, SELFPAY ==
--- NOTE | 2025-05-16 06:00 | DI.CT_ITS ---
Exam(s) CT CHEST/ABD/PEL W EXAM: CT CHEST/ABD/PEL W CLINICAL HISTORY: abnl unintended wt loss,r63.4. TECHNIQUE: Imaging Protocol: Axial computed tomography images with coronal and sagittal reformatted images were created and reviewed CONTRAST MATERIAL: Intravenous: Omnipaque 350 Contrast volume:75 mL Oral: Yes. Oral contrast was also administered for bowel opacification. COMPARISON: No exams were available for comparison FINDINGS: CHEST: LUNGS: There is relatively symmetrical scarring in the sub apical regions of both upper lobes. No associated overlying rib destruction. No ominous pulmonary nodules and there are no pleural effusions. No findings in the trachea and mainstem bronchi. No bronchiectasis.. MEDIASTINUM: There is no hilar nor mediastinal adenopathy. No hiatal hernia. Partially visualized thyroid appears unremarkable. CARDIAC: Heart size is normal. There is no pericardial effusion.The diameter of the ascending thoracic aorta is upper normal. No evidence of dissection. OSSEOUS: No fractures nor significant osseous lesions in the thorax ABDOMEN: There is no ascites. LIVER: There is a small 1 cm hypodensity in the right hepatic lobe which is probably a benign cavernous hemangioma but difficult to assess accurately on this type of study GALLBLADDER/BILIARY: There is a partially calcified density in the neck of the gallbladder. Possibly gallstone versus partially calcified polyp or mass. Gallbladder is not distended nor edematous. CBD is not dilated. PANCREAS: No evidence of pancreatic mass nor dilatation of the pancreatic duct. SPLEEN: Spleen is not enlarged. There are no intrasplenic lesions. Splenic and portal veins are patent. ADRENALS: There are no significant adrenal masses. KIDNEYS: No calculi nor hydronephrosis. No solid renal masses. No cysts evident. ABDOMINAL AORTA: Abdominal aorta is not enlarged. LYMPH NODES: There is no retroperitoneal nor paraaortic adenopathy. There are no abnormal mesenteric masses. ABDOMINAL WALL: No evidence of significant anterior abdominal wall nor inguinal hernia. GI: There is no evidence of small bowel obstruction. PELVIS: LYMPH NODES: There is no intrapelvic nor inguinal adenopathy. GI: No evidence of appendicitis.No evidence of sigmoid diverticulitis. URINARY BLADDER: No calculi nor masses evident REPRODUCTIVE: Uterus and adnexal regions appear unremarkable. However, there is significant abnormal density and thickening in the left labia majora,, this abnormal density measuring approximately 5 cm AP by 3 cm wide. Not extending across the midline. The abnormal density extends caudally into the medial aspect of the uppermost thigh. There is no ring enhancing abscess at this level. These abnormal findings do not cross the midline to the opposite-right side. There is no visualized regional adenopathy and there is no adenopathy along the iliac chain nor in the inguinal region. OSSEOUS: No lytic osseous lesions identified. 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 There is moderate disc space narrowing at L4-5 level. IMPRESSION: 1. The most significant finding here is significant abnormal density in the left labia majora over an area of approximately 5 x 3 cm. Main considerations are for malignancy of this region or inflammatory, although there is no obvious ring- enhancing abscess in this region. There does not appear to be regional lymphadenopathy. 2. Uterus and adnexal regions appear unremarkable and there is no free fluid in the pelvis nor elsewhere in the abdomen. 3. There is a 1 cm hypodensity in the liver which is difficult to assess on this type of study but is most probably a benign cavernous hemangioma. This can be further studied with additional modality, starting with ultrasound. 4. There is a partially calcified 1.4 x 1.0 cm density in the gallbladder neck region, either representing a partially calcified gallstone or partially calcified polyp or other focal gallbladder mass. This should also be further studied with ultrasound examination. RADIATION DOSE DELIVERED: 223.62mGy.cm Total DLP DATA REPOSITORY: All CT scans at this facility are submitted to the National Radiology Data Registry (NRDR) Dose Index Registry (DIR) with the [employer] (ACR). RADIATION OPTIMIZATION: All CT scans at this facility use at least one of these dose optimization techniques: automated exposure control; mA and/or kV adjustment per patient size (includes targeted exams where dose is matched to clinical indication); or iterative reconstruction.
[2025-05-16 08:23] LABS: Abs Immature Grans 0.02 10^3/uL (0.0-0.06); HCT 39.0 % (36.0-46.0); HGB 11.7 g/dL (11.2-15.7); Immature Grans % 0.3 %; MCH 23.8 pg (27.0-33.0); MCHC 30.0 % (32.0-36.0); MCV 79 fL (80-95); MPV 9.9 fL (8.0-11.0); Platelet Count 328 10^3/uL (130-400); RBC 4.92 10^6/uL (3.93-5.22); RDW 17.0 % (11.7-14.6); RDW-SD 49.2 fL; WBC 5.91 10^3/uL (4.4-10.8)
[2025-05-16 08:24] LABS: ESR 9 mm/hr (0-30)
[2025-05-16 08:43] LABS: ALT 43 U/L (14-59); AST 36 U/L (15-37); Albumin 4.4 g/dL (3.4-5.0); Alkaline Phosphatase 113 U/L (46-116); Anion Gap 5.8 mmol/L (3-11); BUN 17 mg/dL (7-18); Bilirubin, Total 0.7 mg/dL (0.2-1.0); CO2 30.2 mmol/L (21.0-32.0); Calcium 9.3 mg/dL (8.5-10.1); Chloride 104 mmol/L (98-107); Estimated GFR 91.83 (mL/min/1.73m2); Glucose 101 mg/dL (74-106); Potassium 4.2 mmol/L (3.5-5.1); Sodium 140 mmol/L (136-145); Total Protein 7.8 g/dL (6.4-8.2)
[2025-05-16] MEDS: Barium Sulfate 2% W/V-Berry Smoothie 450 ML BTL PO (08:59)
[2025-05-16] MEDS: Barium Sulfate 2% W/V-Creamy Vanilla Smoothie 450 ML BTL PO (08:59)
[2025-05-16 09:09] LABS: TSH (W/Ref FT4) 2.46 uIU/mL (0.36-3.74); Vitamin B12 481 pg/mL (193-986)
[2025-05-16] MEDS: Normal Saline Flush 10 ML SYR IVP (09:40)
[2025-05-16] MEDS: Normal Saline - Diluent 50 ML VIAL IJ (09:41)
[2025-05-16] MEDS: Omnipaque 350 MG/ML 100 ML BTL IJ (09:41)
== END 2025-05-16 04:05 ==
LOC: DI 03:45
PROVIDERS: PCP Family Medicine; Visit Provider Family Medicine
DX: R63.4 Abnormal weight loss (principal); E03.9 Hypothyroidism, unspecified
CPT/HCPCS: 74177; 80053; 85652; 71260; 82607; 84443; 85025; J3490

== ENCOUNTER 2025-05-26 07:22 | Outpatient (CLI) | payer MEDICARE, SELFPAY ==
--- NOTE | 2025-05-26 06:00 | DI.MRI_ITS ---
Exam(s) MR BRAIN WO/W EXAM: MR BRAIN WO/W CLINICAL HISTORY: cognitive impairment,MOCA /30 12/2024. TECHNIQUE: Multiplanar multisequence MRI of the brain was performed. CONTRAST MATERIAL: IV Contrast: 10 ML of Dotarem contrast administered. COMPARISON: No exams were available for comparison FINDINGS: VENTRICLES AND EXTRA AXIAL SPACES: Normal in size and morphology for the patient's age. CEREBRAL PARENCHYMA: No focus of restricted diffusion to suggest acute infarct. There is a small area measuring roughly 5 x 6 millimeters of low signal in the posterior inferior right parietal lobe which shows mild enhancement. There is associated susceptibility artifact indicating hemosiderin. Findings could represent a small old hemorrhagic infarct, vascular malformation or metastatic lesion. There are no additional enhancing lesions. There is scattered tiny foci in the white matter consistent with microvascular changes. BRAINSTEM/CEREBELLUM: Normal. CALVARIUM: Normal. VISUALIZED PARANASAL SINUSES/MASTOIDS: Clear. Orbits: Unremarkable. Pituitary: Not enlarged. Vasculature: Normal flow voids. IMPRESSION: Small low signal area with associated hemosiderin and mild surrounding enhancement could indicate metastatic lesion, small vascular malformation versus old infarct. DATA REPOSITORY:
[2025-05-26] MEDS: Gadoterate meglumine 20 ML SYRINGE IVP (09:17)
[2025-05-26] MEDS: Normal Saline Flush 10 ML SYR IVP (09:18)
== END 2025-05-26 07:42 ==
LOC: DI 07:22
PROVIDERS: PCP Family Medicine; Visit Provider Family Medicine
DX: G31.84 Mild cognitive impairment of uncertain or unknown etiology (principal); R93.0 Abnormal findings on diagnostic imaging of skull and head, not elsewhere classified
CPT/HCPCS: 70553

== ENCOUNTER 2025-05-28 01:21 | Outpatient (CLI) | payer MEDICARE, SELFPAY ==
--- NOTE | 2025-05-28 05:30 | DI.US_ITS ---
Exam(s) US ABDOMEN EXAM: US ABDOMEN CLINICAL HISTORY: f/u CT scan,abnl gb imaging,unintentional wt loss,r93.2,r63.4 TECHNIQUE: Ultrasound abdomen performed using standard protocol. COMPARISON: CT CT CHEST/ABD/PEL W from 05/16/2025 FINDINGS: ABDOMINAL AORTA AND IVC: Visualized portions normal caliber. PANCREAS: Normal where visualized. LIVER: Normal. Hepatopetal flow in the Portal Vein. There is a 1.7 x 1.4 x 2.0 cm echogenic focus in the right lobe of the liver. This may represent a hepatic hemangioma. The liver measures 16.3cm long. GALLBLADDER:There are echogenic mobile nodules seen within the gallbladder which may represent noncalcified gallstones or sludge balls. No evidence of wall thickening. No pericholecystic fluid identified. BILIARY SYSTEM: Common bile duct measures < 7 mm. No intrahepatic biliary ductal dilation. CISSE'S SIGN: Negative. KIDNEYS: Kidneys are symmetric in size. No evidence of renal calculi. No evidence of hydronephrosis. No renal mass or cyst identified. SPLEEN: Not enlarged. ASCITES: None seen. IMPRESSION: 1. Mobile echogenic nodule seen within the gallbladder which may represent noncalcified stones or balls of sludge. No sonographic findings to suggest acute cholecystitis. There is no biliary ductal dilatation. 2. 2.0 cm echogenic focus in the right lobe of the liver. This may represent hepatic hemangioma. This may be further evaluated with an MRI of the liver without and with contrast. Unexpected findings DATA REPOSITORY:
== END 2025-05-28 01:41 ==
LOC: DI 01:22
PROVIDERS: PCP Family Medicine; Visit Provider Family Medicine
DX: R93.2 Abnormal findings on diagnostic imaging of liver and biliary tract (principal); R63.4 Abnormal weight loss
CPT/HCPCS: 76700

== ENCOUNTER 2025-06-04 03:34 | Outpatient (CLI) | payer MEDICARE, SELFPAY ==
--- NOTE | 2025-06-04 06:15 | DI.US_ITS ---
Exam(s) US PELVIS TRANSVAGINAL EXAM: US PELVIS TRANSVAGINAL CLINICAL HISTORY: labial swelling,N94.89 TECHNIQUE: Transabdominal and transvaginal imaging was performed using standard protocol. COMPARISON: CT CT CHEST/ABD/PEL W from 05/16/2025 FINDINGS: The bladder appears normal. UTERUS: Anteverted. cm Endometrium: mm Myometrium: Unremarkable. Cervix: Unremarkable. OVARIES: Not well seen due to adjacent bowel. Right: Cyst or mass: None. Left: Cyst or mass: None. DOPPLER: There are mildly dilated periuterine veins, up to 7 millimeters. CUL-DE-SAC: Free fluid: None. IMPRESSION: 1. Normal-appearing uterus with endometrial stripe within normal limits. 2. The ovaries were obscured by adjacent bowel. Mildly dilated periuterine veins. DATA REPOSITORY:
== END 2025-06-04 03:54 ==
LOC: DI 03:34
PROVIDERS: PCP Family Medicine; Visit Provider Nurse Practitioner Family
DX: N94.89 Other specified conditions associated with female genital organs and menstrual cycle (principal)
CPT/HCPCS: 76830; 76856

== ENCOUNTER 2025-06-05 08:52 | Outpatient (REF) | payer MEDICARE, SELFPAY | END 2025-06-05 08:53 | disposition home or self-care (01) | LOC: LBN 08:52 | PROVIDERS: PCP Family Medicine; Visit Provider Family Medicine | DX: R63.4 Abnormal weight loss (principal); R19.5 Other fecal abnormalities | CPT/HCPCS: 87015; 87177; 87209; 87269; 87272 ==

== ENCOUNTER 2025-06-30 03:33 | Outpatient (CLI) | payer MEDICARE, SELFPAY ==
--- NOTE | 2025-06-30 06:30 | DI.MAMMO_ITS ---
Exam(s) MAMMO SCREENING EXAM: MAMMO SCREENING CLINICAL HISTORY: screening,z12.39 TECHNIQUE: Bilateral full field digital CC and MLO mammographic images were obtained with 3D tomosynthesis and utilizing computer aided detection (CAD). COMPARISON: Comparison is made with prior examinations. FINDINGS: Masses/Architectural Distortion: No suspicious masses or areas of architectural distortion are present. Microcalcifications: No suspicious pleomorphic-type are seen. Skin Thickening/Nipple Retraction: None. IMPRESSION: 1. No significant interval change with no specific features of malignancy noted. 2. Unless there is more urgent need, screening mammography is recommended, as per [employer] guidelines. BI-RADS Category 1 - Negative Breast Density - Category B - There are scattered areas of fibroglandular density. Breast density Category C or D implies that the patient has dense breast tissue. Dense breast tissue can make it harder to find cancer on a mammogram. Dense breast tissue is also associated with an increased risk of breast cancer. This information about the result of the mammogram report was provided to the patient to raise their awareness. Use this report when you speak with the patient about their risks for breast cancer, which includes their family history. At that time, you may recommend additional screening tests (Ultrasound or MRI) as these tests may add significant information. A negative radiographic report should not delay biopsy if a dominant or clinically suspicious mass is present. Up to ten percent of cancers are not identified on mammography. A negative report may reinforce clinical impression. Adenosis and dense breasts may obscure an underlying neoplasm. False positive reports average 6 to 10%. Patient will receive a letter notifying them of these results.
== END 2025-06-30 03:53 ==
LOC: DI 03:33
PROVIDERS: PCP Family Medicine; Visit Provider Nurse Practitioner Family
DX: Z12.31 Encounter for screening mammogram for malignant neoplasm of breast (principal)
CPT/HCPCS: 77063; 77067

== ENCOUNTER → 2025-07-01 08:06 | Outpatient (BNVA) | payer MEDICARE, SELFPAY | PROVIDERS: PCP Family Medicine; Referring Provider Family Medicine; Visit Provider Student in an Organized Health Care Education/Training Program | DX: R63.4 Abnormal weight loss (principal) | CPT/HCPCS: 99213 ==

== ENCOUNTER 2025-07-04 08:48 | Day surgery (SDC) | payer MEDICARE, SELFPAY ==
[2025-07-04 09:31] VITALS: BP 130/96; PULSE 81; RESP 16; TEMP 36.1; O2SAT 99
[2025-07-04] MEDS: Lactated Ringers 1,000 ML 80 ML IV (09:46)
--- NOTE | 2025-07-04 09:59 | ANES.PREOP_ITS ---
General Info Date of Service Date Performed: 07/04/25 Height: 5 ft 9 in Weight: 51 kg Body Mass Index (BMI): 16.6 Surgical Procedure: Operation Date: 07/04/25 10:35 Proposed Procedure Side Surgeon p Colonoscopy/Gastroscopy Elba Kent MD Meds Allergies and Home Medications Allergies Allergy/AdvReac Type Severity Reaction Status Date / Time No Known Allergies Allergy Verified 07/04/25 09:29 Home Medication Medication Instructions Recorded cholecalciferol (vitamin D3) 25 1,000 unit PO .QOD mcg (1,000 unit) tablet donepezil 10 mg tablet 10 mg PO DAILY #90 tabs 06/04 03/28 bisacodyl 5 mg tablet,delayed 5 mg PO ONCE colonscopy bowel prep 07/01/25 release (Dulcolax (bisacodyl)) #4 tabs polyethylene glycol 3350 17 238 g PO ONCE colonoscopy prep 07/01/25 gram/dose oral powder #238 grams psyllium husk 3.4 gram/5.4 gram 1 tbsp PO DAILY oral powder (Metamucil) Current Visit Medications: Current Medications Generic Name Dose Route Start Last Admin Trade Name Freq PRN Reason Stop Dose Admin Ringer's Solution 1,000 mls @ 80 mls/hr 07/04/25 06:00 07/04/25 09:46 IV 07/04/25 23:59 80 mls/hr INFUSION REUBEN Administration IV Miscellaneous Supplies 1 each 07/04/25 06:00 Iv Access IV 07/04/25 23:59 DIRECTED REUBEN Sodium Chloride 0 ml 07/04/25 06:00 Normal Saline Flush 10 Ml Syr IV 07/04/25 23:59 PRN PRN Sodium Chloride 0 ml 07/04/25 06:00 Normal Saline 10 Ml Vial IJ 07/04/25 23:59 DIRECTED PRN Sterile Water 0 ml 07/04/25 06:00 Water,Injection,Sterile 10 Ml Vial IJ 07/04/25 23:59 DIRECTED PRN PFSH Active Problems Active Problems: Problem Status Onset Code Labial lesion Acute N90.89 Unintentional weight loss of 10% body weight within 6 months Acute R63.4 Mild cognitive impairment Acute G31.84 Osteoporosis Chronic 12/2023 M81.0 Essential hypertension Acute I10 Hyperlipidemia Chronic E78.5 Osteopenia Chronic M85.80 Medical History Medical History COVID (~06/02/23) Fungal infection of toenail RIGHT great toe 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 Date GA/Weeks # Preg Succ Route Wgt Sex Labor Lgth Anesth esia Location [facility] 11/02/82 40 No Yes vaginal 3175.147 g Male Dylan [place] 04/24/85 40 No Yes vaginal Male [place] 11/28/88 40 No Yes vaginal Female [place] Vital Signs and Lab Results Vital Signs Most Recent Vital Signs in EMR: Most Recent Vital Signs Temp Pulse Resp BP Pulse Ox 36.1 C L 81 16 130/96 H 99 07/04/25 09:31 07/04/25 09:31 07/04/25 09:31 07/04/25 09:31 07/04/25 09:31 Anesthesia Assessment and Plan Anesthesia History Personal History: No History of Anesthesia Complications Family History: No Family History of Anesthesia Complications Exercise Tolerance Exercise Tolerance: Metabolic Equivalents>4 Pertinent Negatives Pertinent Negatives: No Symptoms of GERD, No Major Cardiovascular Symptoms or Complaints and No Major Pulmonary Symptoms or Complaints Cardiac & Pulmonary Exam Cardiac Exam: Normal S1/S2 Heart Sounds Pulmonary Exam: Clear Bilateral Breath Sounds Implantable Cardiac Device Does patient have a Pacemaker or an ICD?: No Airway Exam Known Difficult Airway: No Mallampati Class: 2 Mouth Opening: Normal (> 3cm) Thyromental Distance: Greater than 3 cm Neck Range of Motion: Full ROM Neck Circumference: Normal Teeth Condition: Normal Dentition ASA Classification ASA Score: ASA 2 Emergency Case?: No NPO Status NPO Status: NPO Clears >2 hours, Solids >8 hours Anesthesia Plan Resuscitation Status: Full Code Anesthesia Technique: General Anesthesia Airway Planned: Natural Airway Monitors Used: Standard Monitors
[2025-07-04 10:08] VITALS: BMI 16.6
--- NOTE | 2025-07-04 10:51 | BOWEL_PTH ---
PATIENT: Lindy Armando LOC: [facility] U#:[id number] AGE/SX: 74/F ROOM: RE07/04/[address]: Elba Kent : 1950 BED: DIS: 07/04/2025 SPEC #: [id number] RECD: 07/04/25 12:55 STATUS: ALVARO REQ #: [id number] SADAF: 07/04/25 10:[address]: Elba Kent DEPT: Surgical Specimen RECD BY: Leny Ruiz ENTERED: 07/04/25 12:56 SP TYPE: Bowel OTHR DR: Gabi Burrell Tissues: 1 - BIOPSY BOWEL 2 - STOMACH BIOPSY 3 - ESOPHAGUS BIOPSY Procedures: GROSS AND MICRO LEVEL 4 Comments: [id number]
--- NOTE | 2025-07-04 11:22 | W.PM.DSUDISC ---
Date of service: 07/04/25 Discharge Plan Disposition Patient Disposition: Home Condition: Good Discharge Details Reason For Visit: Unintentional weight loss Attending Provider: Elba Kent Primary Care Provider: Gabi Burrell Recommendations for Follow Up Recommended tests to be ordered by follow up provider: Follow up biopsy results Home Meds and New Rx's Prescriptions: Continued donepezil 10 mg tablet 10 mg PO DAILY Qty: 90 1RF Metamucil 3.4 gram/5.4 gram powder 1 tbsp PO DAILY Rx Instructions: mix into at least 8 oz of water or juice before administering cholecalciferol (vitamin D3) 1,000 unit tablet 1,000 unit PO .QOD Discontinued bisacodyl [Dulcolax (bisacodyl)] 5 mg tablet,delayed release (DR/EC) 5 mg PO ONCE Qty: 4 0RF Rx Instructions: take per colonoscopy instructions polyethylene glycol 3350 17 gram/dose powder 238 g PO ONCE Qty: 238 0RF Rx Instructions: take per colonoscopy instructions Discharge Instructions Additional Instructions: Your upper endoscopy and colonoscopy went well today. Some routine biopsies were obtained during the upper endoscopy. We will contact you once those results return. Otherwise everything appeared normal. Please contact the general surgery office if you have further questions or concerns. 1. If tolerated, consume a soft, low fiber diet for 1-2 days. 2. Do not drive, drink alcohol, operate machinery, make critical decisions, or do activities that require coordination or balance for 24 hours. 3. Because air was put into your colon during the procedure, expelling air from your rectum (passing gas or farting) is normal. 4. You may not have a bowel movement for 1-3 days because of the colonoscopy prep. This is normal. 5. Go directly to the emergency room if you notice any of the following: Develop chills (warm to touch), or if you have a thermometer and your temperature is above 101 Difficulty breathing or difficultly swallowing Persistent vomiting Severe abdominal pain, other than gas cramps Severe chest pain Black, tarry stools Any bleeding – exceeding one tablespoon 6. Call your physician if the site where your intravenous was started becomes red, swollen, painful, and warm to touch. 7. Your physician has reviewed your pre-procedure medications. Please continue to take those medications as previously ordered. You will be given specific information/education regarding any changes to your medications before leaving. Stand Alone Forms: Anesthesia Discharge Inst., Hemant Vazquez (DSU) Activity:: Activity as Tolerated Diet:: As Tolerated Discharge Orders Discharge Orders: Discharge Order (Routine); Ordered 07/04/25 Ordered By: Elba Kent
[2025-07-04 11:23] VITALS: BP 85/59; PULSE 60; RESP 16; TEMP 36.2; O2SAT 98
--- NOTE | 2025-07-04 11:25 | W.PM.ENDDOP ---
Date of service: 07/04/25 Time of Service: 11:25 Endoscopy Report DATE OF PROCEDURE: 07/04/25 PRE-OP DIAGNOSIS: Unintentional weight loss POST-OP DIAGNOSIS: same PROCEDURE: Upper endoscopy with biopsy SURGEON: Elba Kent ANESTHESIA TYPE: General:No Airway ESTIMATED BLOOD LOSS: 1 PATHOLOGY: other (Biopsy of duodenum, antrum, GE junction ) COMPLICATIONS: None DISPOSITION: PACU INDICATIONS: Patient is a 74 yo female who presents with unintentional weight loss for a upper endoscopy and colonoscopy. FINDINGS: Normal upper endoscopy. Cold forcep biopsy obtained of duodenum, antrum and GE junction. PROCEDURE DESCRIPTION: After adequate sedation, the upper endoscope was inserted and advanced in the duodenum under direct visualization. The scope was withdrawn and the mucosa inspected. The duodenum appeared normal and a cold forcep biopsy was obtained. The stomach was normal with no evidence of ulcerations or erosions. The antrum area was biopsied and also checked for H. pylori. Retroflexion view in the stomach was normal. At the lower esophagus Z line area, this was inspected and noted to be normal. No evidence of Multani’s esophagus or strictures. A cold forcep biopsy of the GE junction was performed. Otherwise, the esophagus was normal. The scope was completely withdrawn from the patient. The patient tolerated the procedure well with no immediate complications.
--- NOTE | 2025-07-04 11:27 | W.COLOREPORT ---
Date of service: 07/04/25 Time of Service: 11:27 Colonoscopy Report Date of procedure: 07/04/25 Pre-op diagnosis general: Unintentional weight loss Post-op diagnosis procedure note: same Procedure: Colonoscopy performed to hepatic flexure Surgeon: Elba Kent Anesthesia Type: General:No Airway Estimated blood loss (mL): 1 Pathology: none sent Complications: None Disposition: PACU Indications: Patient is a 74 yo female who presents for upper endoscopy and colonoscopy due to unintentional weight loss. Procedure Start Time: 10:49 Procedure End Time: 11:17 Findings: Normal colonoscopy performed to hepatic flexure. Ascending colon visualized but unable to advance to cecum given significant looping. Procedure Description: Informed consent was obtained. The patient was taken to the endoscopy suite and placed in the left lateral decubitus position. After adequate intravenous sedation, digital rectal exam was performed, which was normal. A colonoscope was inserted into the rectum and negotiated to the hepatic flexure with significant difficulty. The colon was tortuous and significant looping occurring. The ascending colon was able to be visualized but unable to advance safely. The entire colonic mucosa was then carefully circumferentially inspected upon slow withdrawal of the scope. The ascending, transverse, and descending colon were all normal. Retroflexion in the rectum was unremarkable. The patient tolerated the procedure well with no complications. Postoperatively, the patient was transferred to the recovery room in stable condition. [place] Bowel Prep [place] Bowel Prep Right Colon: 3 Left Colon: 3 Transverse Colon: 3 Total Score: 9
[2025-07-04 11:49] VITALS: BP 101/68; PULSE 61; RESP 16; TEMP 36.4; O2SAT 100
[2025-07-04 12:31] VITALS: BP 128/80; PULSE 62; RESP 16; TEMP 36.4; O2SAT 100
--- NOTE | 2025-07-04 12:35 | W.ANESPOSTOP ---
Postoperative Evaluation Date, Time and Location Date Performed: 07/04/25 Time Performed: 11:49 Patient Location: Day Surgery Unit Vital Signs Most Recent Imported Vital Signs: Most Recent Vital Signs Temp Pulse Resp BP Pulse Ox 36.4 C L 61 16 101/68 100 07/04/25 11:49 07/04/25 11:49 07/04/25 11:49 07/04/25 11:49 07/04/25 11:49 Pain Score Most Recent Pain Score: Most Recent Pain Score Pain Level 0 07/04/25 11:49 Assessment Mental Status: Awake (Alert & Oriented to Patient Baseline) Airway and Respiratory Function: Patent airway with normal (patient baseline) respiratory exam Cardiovascular Function: Hemodynamically Stable Hydration Status: Adequately Hydrated Nausea & Vomiting: No Nausea or Vomiting Pain: Pt. Denies Any Pain Peripheral Nerve Block: Patient did not receive a nerve block
== END 2025-07-04 12:59 | disposition home or self-care (01) ==
PROVIDERS: PCP Family Medicine; Visit Provider Student in an Organized Health Care Education/Training Program
PROC: (CPT 43239; principal; 2025-07-04 10:30)
DX: R63.4 Abnormal weight loss (principal); K56.2 Volvulus; B96.81 Helicobacter pylori [H. pylori] as the cause of diseases classified elsewhere; K22.89 Other specified disease of esophagus; K29.71 Gastritis, unspecified, with bleeding
CPT/HCPCS: 43239; 45378; 88305; J2003; J2704

== ENCOUNTER → 2025-07-15 11:10 | Outpatient (BNVA) | payer MEDICARE, SELFPAY | PROVIDERS: PCP Family Medicine; Referring Provider Family Medicine; Visit Provider Student in an Organized Health Care Education/Training Program | DX: A04.8 Other specified bacterial intestinal infections (principal) | CPT/HCPCS: 99213 ==

== ENCOUNTER 2025-09-03 07:21 | Outpatient (REF) | payer MEDICARE, SELFPAY ==
[2025-09-05 12:51] LABS: Helicobacter pylori Ag, Feces Negative (Negative)
== END 2025-09-03 07:22 | disposition home or self-care (01) ==
LOC: LBN 07:21
PROVIDERS: PCP Family Medicine; Visit Provider Family Medicine
DX: A04.8 Other specified bacterial intestinal infections (principal)
CPT/HCPCS: 87338